=== PATIENT | female | born 1985 | race Caucasian/White ===

== ENCOUNTER 2018-02-04 03:38 | Emergency (ER) | payer BC ==
[2018-02-04] MEDS ORDERED: CYCLOBENZAPRINE 10 MG TAB ONE (04:15)
[2018-02-04] MEDS ORDERED: HYDROCODONE/APAP 10/325 TAB ONE (04:15)
[2018-02-04 05:00] LABS: Urine Glucose 2+ (NEG); Urine Specific Gravity 1.015 (1.005-1.030)
[2018-02-04 05:01] LABS: Urine Blood NEGATIVE (NEG); Urine Protein NEGATIVE (NEG)
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
[2018-02-04 06:08] VITALS: BP 153/100; TEMP 97.3; O2SAT 99
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
== END 2018-02-04 06:02 | disposition home or self-care (01) ==
LOC: ER 03:38
DX: M54.5 Low back pain (principal); V59.40XA Driver of pick-up truck or van injured in collision with unspecified motor vehicles in traffic accident, initial encounter; F17.210 Nicotine dependence, cigarettes, uncomplicated
CPT/HCPCS: 72125; 72131; 81003; 81025; 99284

== ENCOUNTER 2019-04-02 10:15 | Emergency (ER) | payer BC ==
[2019-04-02] MEDS ORDERED: FLUORESCEIN SODIUM 1 MG/WRAP ONE (11:30)
[2019-04-02] MEDS ORDERED: TETRACAINE HCL 0.5% 4ML OPTH ONE (11:30)
--- NOTE | 2019-04-02 11:46 | ER ---
Nurse's Notes [facility] Name: Laney Griffith Age: 33 yrs Sex: Female : 1985 Arrival Date: 04/02/2019 Time: 10:17 Bed 17 Private MD: Diagnosis: Ocular pain, left eye;Ocular pain, right eye;Type 2 diabetes mellitus Presentation: 04/02 10:21 Presenting complaint: Patient states: right back pain and "Dr Chaparro told me I have sv chronic dry eyes and the techniques he's used are not helping me. The diabetes is taking over. ". Transition of care: patient was not received from another setting of care. Onset of symptoms is unknown. Risk Assessment: Do you want to hurt yourself or someone else? Patient reports no desire to harm self or others. Care prior to arrival: None. 10:21 Method Of Arrival: Ambulatory sv 10:21 Acuity: BRUCE 3 sv Historical: - Allergies: 10:22 No Known Allergies; sv - PMHx: 10:22 ibs; Diabetes - NIDDM; sv - PSHx: 10:22 eye; sv - Immunization history:: Adult Immunizations up to date. - Social history:: Smoking status: Patient uses tobacco products, smokes two packs cigarettes per day. - Ebola Screening: : No symptoms or risks identified at this time. - Family history:: not pertinent. Screenin:35 Abuse screen: Denies threats or abuse. Nutritional screening: No deficits noted. la1 Tuberculosis screening: No symptoms or risk factors identified. Fall Risk None identified. Assessment: 11:34 General: Appears in no apparent distress. Behavior is calm, cooperative. Pain: la1 Complains of pain in right eye and left eye. Neuro: Level of Consciousness is awake, alert, obeys commands, Oriented to person, place, time, situation. Cardiovascular: No deficits noted. Respiratory: Airway is patent Respiratory effort is even, unlabored, Respiratory pattern is regular, symmetrical. GI: No signs and/or symptoms were reported involving the gastrointestinal system. : No signs and/or symptoms were reported regarding the genitourinary system. EENT: Sclera/Cornea are clear in outer aspect of conjuctiva of right eye, inner aspect of conjuctiva of right eye, outer aspect of conjuctiva of left eye and inner aspect of conjunctiva of left eye. Vital Signs: 10:23 BP 129 / 72; Pulse 98; Resp 20; Temp 98.1(O); Pulse Ox 97% ; Weight 90.72 kg; Height 5 sv ft. 3 in. (160.02 cm); 10:23 Body Mass Index 35.43 (90.72 kg, 160.02 cm) sv ED Course: 10:17 Patient arrived in ED. as 10:22 Triage completed. sv 10:23 Arm band placed on. sv 10:35 Esteban Hollis MD is Attending Physician. [facility] 10:48 Jb Newton, ELIZABETH is Primary Nurse. la1 11:35 Patient has correct armband on for positive identification. la1 11:45 Stiven Chaparro MD is Referral Physician. [facility] 11:57 Urine --Ancillary (enter results) Sent. la1 12:02 No provider procedures requiring assistance completed. Patient did not have IV access la1 during this emergency room visit. Administered Medications: 11:57 Drug: Tobramycin Ointment (0.3 %) 0.5 inches Route: Ophthalmic; Site: both eyes; me1 Point of Care Testing: Blood Glucose: 11:31 Blood Glucose: 175 mg/dL; 5 Ranges: Outcome: 11:45 Discharge ordered by . [facility] 12:02 Discharged to home ambulatory. [facility] 12:02 Condition: stable 12:02 Discharge instructions given to patient, Instructed on discharge instructions, follow up and referral plans. medication usage, Demonstrated understanding of instructions, follow-up care, medications, Prescriptions given X 2. 12:02 Patient left the ED. [facility] Signatures: Sunita Oconnor RN RN Esteban Hollis MD MD cha Martinez, Amelia as Jb Newton RN RN la Keisha Taylor 5 Corrections: (The following items were deleted from the chart) 10:24 10:23 BP 129 / 72; Pulse 98bpm; Resp 20bpm; Pulse Ox 97%; 90.72 kg; Height 5 ft. 3 in.; sv BMI: 35.4; sv 10:32 10:21 Presenting complaint: Patient states: right back pain and "Dr Chaparro told me I sv have chronic dry eyes and the techniques he's used are not helping me. " sv
--- NOTE | 2019-04-02 11:47 | EDPHYS ---
Physician Documentation [facility] Name: Laney Griffith Age: 33 yrs Sex: Female : 1985 Arrival Date: 04/02/2019 Time: 10:17 Bed 17 Private MD: MARK Physician Esteban Hollis HPI: 04/02 11:10 This 33 yrs old Female presents to ER via Ambulatory with complaints of Eye ivanna Problem, Back Pain, Depression. 11:10 The patient is experiencing burning. Onset: The symptoms/episode began/occurred 3 ivanna day(s) ago. Duration: the symptoms are continuous. Aggravated by nothing. Alleviated by nothing. Associated signs and symptoms: Pertinent positives:. Severity of symptoms: At their worst the symptoms were mild in the emergency department the symptoms are unchanged. The patient has not experienced similar symptoms in the past. Historical: - Allergies: 10:22 No Known Allergies; sv - PMHx: 10:22 ibs; Diabetes - NIDDM; sv - PSHx: 10:22 eye; sv - Immunization history:: Adult Immunizations up to date. - Social history:: Smoking status: Patient uses tobacco products, smokes two packs cigarettes per day. - Ebola Screening: : No symptoms or risks identified at this time. - Family history:: not pertinent. ROS: 11:10 Constitutional: Negative for fever, chills, and weight loss, ENT: Negative for injury, ivanna pain, and discharge, Neck: Negative for injury, pain, and swelling, Cardiovascular: Negative for chest pain, palpitations, and edema, Respiratory: Negative for shortness of breath, cough, wheezing, and pleuritic chest pain, Abdomen/GI: Negative for abdominal pain, nausea, vomiting, diarrhea, and constipation, Back: Negative for injury and pain, : Negative for injury, bleeding, discharge, and swelling, MS/Extremity: Negative for injury and deformity, Skin: Negative for injury, rash, and discoloration, Neuro: Negative for headache, weakness, numbness, tingling, and seizure, Psych: Negative for depression, anxiety, suicide ideation, homicidal ideation, and hallucinations, Allergy/Immunology: Negative for hives, rash, and allergies, Endocrine: Negative for neck swelling, polydipsia, polyuria, polyphagia, and marked weight changes, Hematologic/Lymphatic: Negative for swollen nodes, abnormal bleeding, and unusual bruising. 11:10 Eyes: Positive for pain, redness, of the outer aspect of conjuctiva of right eye, iris of right eye, inner aspect of conjuctiva of right eye, outer aspect of conjuctiva of left eye, iris of left eye and inner aspect of conjunctiva of left eye. Exam: 11:10 Constitutional: This is a well developed, well nourished patient who is awake, alert, ivanna and in no acute distress. Head/Face: Normocephalic, atraumatic. ENT: Nares patent. No nasal discharge, no septal abnormalities noted. Tympanic membranes are normal and external auditory canals are clear. Oropharynx with no redness, swelling, or masses, exudates, or evidence of obstruction, uvula midline. Mucous membranes moist. Neck: Trachea midline, no thyromegaly or masses palpated, and no cervical lymphadenopathy. Supple, full range of motion without nuchal rigidity, or vertebral point tenderness. No Meningismus. Chest/axilla: Normal chest wall appearance and motion. Nontender with no deformity. No lesions are appreciated. Cardiovascular: Regular rate and rhythm with a normal S1 and S2. No gallops, murmurs, or rubs. Normal PMI, no JVD. No pulse deficits. Respiratory: Lungs have equal breath sounds bilaterally, clear to auscultation and percussion. No rales, rhonchi or wheezes noted. No increased work of breathing, no retractions or nasal flaring. Abdomen/GI: Soft, non-tender, with normal bowel sounds. No distension or tympany. No guarding or rebound. No evidence of tenderness throughout. Back: No spinal tenderness. No costovertebral tenderness. Full range of motion. Skin: Warm, dry with normal turgor. Normal color with no rashes, no lesions, and no evidence of cellulitis. MS/ Extremity: Pulses equal, no cyanosis. Neurovascular intact. Full, normal range of motion. Neuro: Awake and alert, GCS 15, oriented to person, place, time, and situation. Cranial nerves II-XII grossly intact. Motor strength 5/5 in all extremities. Sensory grossly intact. Cerebellar exam normal. Normal gait. Psych: Awake, alert, with orientation to person, place and time. Behavior, mood, and affect are within normal limits. 11:10 Eyes: Periorbital structures: appear normal, no acute changes, Pupils: no acute changes, equal, round, and reactive to light and accomodation, Extraocular movements: intact throughout, Conjunctiva: normal, no acute changes, Corneas: are normal, Anterior chamber: normal, no acute changes, Lids and lashes: appear normal, no acute changes, funduscopic exam reveals no obvious abnormalities, no acute changes, Nystagmus: is not appreciated. Vital Signs: 10:23 BP 129 / 72; Pulse 98; Resp 20; Temp 98.1(O); Pulse Ox 97% ; Weight 90.72 kg; Height 5 sv ft. 3 in. (160.02 cm); 10:23 Body Mass Index 35.43 (90.72 kg, 160.02 cm) sv MDM: 10:35 Patient medically screened. [facility] 11:13 Data reviewed: vital signs, nurses notes. [facility] 04/02 11:56 Order name: Urine Dipstick--Ancillary (enter results) in 04/02 11:56 Order name: Urine --Ancillary (enter results) in 04/02 11:09 Order name: Eye Tray; Complete Time: 11:33 [facility] 04/02 11:09 Order name: Blood Glucose Level; Complete Time: 11:33 [facility] 04/02 11:36 Order name: Urine Dipstick-Ancillary (obtain specimen); Complete Time: 11:51 [facility] 04/02 11:36 Order name: Urine Test (obtain specimen); Complete Time: 11:51 la1 Administered Medications: 11:57 Drug: Tobramycin Ointment (0.3 %) 0.5 inches Route: Ophthalmic; Site: both eyes; al1 Point of Care Testing: Blood Glucose: 11:31 Blood Glucose: 175 mg/dL; 5 Ranges: Critical Glucose Levels:Adult <50 mg/dl or >400 mg/dl <40 mg/dl or >180 mg/dl Disposition: 04/02/19 11:45 Discharged to Home. Impression: Ocular pain, left eye, Ocular pain, right eye, Type 2 diabetes mellitus. - Condition is Stable. - Discharge Instructions: Type 2 Diabetes Mellitus, Diagnosis, Adult, Corneal Abrasion, Corneal Abrasion, [id number], Tobacco Use Disorder, Type 2 Diabetes Mellitus, Diagnosis, Adult, [id number], Type 2 Diabetes Mellitus, Self Care, Adult, Type 2 Diabetes Mellitus, Self Care, Adult, [id number]. - Prescriptions for Tobrex 0.3 % Ophthalmic ointment - apply 1 inch ribbon by OPHTHALMIC route 3 times per day; 3.5 gram. Tylenol- Codeine #3 300-30 mg Oral Tablet - take 2 tablet by ORAL route every 6 hours As needed; 30 tablet. - Medication Reconciliation Form, Thank You Letter, Antibiotic Education, Prescription Opioid Use form. - Follow up: Private Physician; When: 2 - 3 days; Reason: Recheck today's complaints, Continuance of care, Re-evaluation by your physician. Follow up: Stiven Chaparro MD; When: 1 - 2 days; Reason: Recheck today's complaints, Continuance of care, Re-evaluation by your physician. - Problem is new. - Symptoms have improved. Signatures: Dispatcher [employer] EDSunita Almodovar RN RN sv Anderson, Corey, MD MD cha Attema, Lee, RN RN la1 Corrections: (The following items were deleted from the chart) 11:45 11:45 04/02/2019 11:45 Discharged to Home. Impression: Ocular pain, left eye; Ocular ivanna pain, right eye. Condition is Stable. Forms are Medication Reconciliation Form, Thank You Letter, Antibiotic Education, Prescription Opioid Use. Follow up: Private Physician; When: 2 - 3 days; Reason: Recheck today's complaints, Continuance of care, Re-evaluation by your physician. Problem is new. Symptoms have improved. [facility] 11:47 11:45 04/02/2019 11:45 Discharged to Home. Impression: Ocular pain, left eye; Ocular ivanna pain, right eye. Condition is Stable. Forms are Medication Reconciliation Form, Thank You Letter, Antibiotic Education, Prescription Opioid Use. Follow up: Private Physician; When: 2 - 3 days; Reason: Recheck today's complaints, Continuance of care, Re-evaluation by your physician. Follow up: Stiven Chaparro; When: 1 - 2 days; Reason: Recheck today's complaints, Continuance of care, Re-evaluation by your physician. Problem is new. Symptoms have improved. [facility] 12:02 11:47 04/02/2019 11:45 Discharged to Home. Impression: Ocular pain, left eye; Ocular la1 pain, right eye; Type 2 diabetes mellitus. Condition is Stable. Discharge Instructions: Corneal Abrasion, Corneal Abrasion, [id number], Type 2 Diabetes Mellitus, Diagnosis, Adult, Type 2 Diabetes Mellitus, Diagnosis, Adult, [id number], Type 2 Diabetes Mellitus, Self Care, Adult, Type 2 Diabetes Mellitus, Self Care, Adult, [id number]. Prescriptions for Tobrex 0.3 % Ophthalmic ointment - apply 1 inch ribbon by OPHTHALMIC route 3 times per day; 3.5 gram, Tylenol-Codeine #3 300-30 mg Oral Tablet - take 2 tablet by ORAL route every 6 hours As needed; 30 tablet. and Forms are Medication Reconciliation Form, Thank You Letter, Antibiotic Education, Prescription Opioid Use. Follow up: Private Physician; When: 2 - 3 days; Reason: Recheck today's complaints, Continuance of care, Re-evaluation by your physician. Follow up: Stiven Chaparro; When: 1 - 2 days; Reason: Recheck today's complaints, Continuance of care, Re-evaluation by your physician. Problem is new. Symptoms have improved. ivanna
[2019-04-02] MEDS ORDERED: TOBRAMYCIN SULF 0.3% OPTH OINT ONE (11:54)
[2019-04-02 12:01] LABS: Urine Blood NEGATIVE (NEG); Urine Glucose 1+ (NEG); Urine Protein NEGATIVE (NEG); Urine Specific Gravity 1.015 (1.005-1.030); Urine pH 5.5 (5.0-7.0)
[2019-04-02 12:27] VITALS: BP 129/72; TEMP 98.1; O2SAT 97
== END 2019-04-02 12:02 | disposition home or self-care (01) ==
LOC: ER 10:15
DX: H57.13 Ocular pain, bilateral (principal); E11.9 Type 2 diabetes mellitus without complications; F17.210 Nicotine dependence, cigarettes, uncomplicated
CPT/HCPCS: 81003; 81025; 82962; 99283

== ENCOUNTER 2019-06-11 15:22 | Emergency (ER) | payer BC ==
[2019-06-11] MEDS ORDERED: NA CHLORIDE 0.9% 1,000 ML ONE (15:45)
--- NOTE | 2019-06-11 15:54 | EKG ---
Test Date: 2019-06-11 Test Time: 15:41:45 Cake Puller: ARA MEASUREMENT RESULTS: Intervals: Rate: 69 MI: 146 QRSD: 78 QT: 398 QTc: 426 Huntley: P: 52 MI: 146 QRS: 51 T: 51 INTERPRETIVE STATEMENTS: Normal sinus rhythm with sinus arrhythmia Normal ECG Compared to ECG 12/08/2014 17:30:42 No significant changes Electronically Signed On 06-11-19 15:53:12 [employer]ILY [employer]ENCE CASE MANAGER by Ross Ayers
[2019-06-11 16:12] LABS: Absolute Lymphocytes (CBC) 2.4 K/uL (0.7-4.9)
--- NOTE | 2019-06-11 16:20 | RAD REPORT ---
EXAM DESCRIPTION: CT - Head Brain Wo Cont - 06/11/2019 3:51 pm CLINICAL HISTORY: Transient alteration of awareness COMPARISON: None. TECHNIQUE: Axial 5 mm thick images of the head were obtained without IV contrast. All CT scans are performed using dose optimization technique as appropriate and may include automated exposure control or mA/KV adjustment according to patient size. FINDINGS: No intracranial hemorrhage, mass, edema or shift of mid-line structures. No acute infarcti on changes seen. No abnormal extra-axial fluid collections. Ventricles are normal. Mastoid air cells and visualized portions of the paranasal sinuses are clear. No acute bony findings. IMPRESSION: Negative non-contrast CT head examination.
[2019-06-11 16:27] LABS: Basophils % 1.5 % (0-1.3); Hematocrit 41.6 % (36.0-45.0); Lymphocytes % 29.6 % (15.3-44.8); MPV 7.1 fL (7.6-11.3); Protime INR 1.04; RBC Red Blood Cell Count 4.83 M/uL (3.86-4.86)
[2019-06-11 16:53] LABS: ALT/SGPT 49 U/L (12-78); AST/SGOT 22 U/L (15-37); Albumin 3.7 g/dL (3.4-5.0); Alkaline Phosphatase 85 U/L (45-117); BUN Blood Urea Nitrogen 8 mg/dL (7-18); Bicarbonate 29 mmol/L (21-32); Bilirubin Direct 0.1 mg/dL (0-0.2); Bilirubin Total 0.5 mg/dL (0.2-1.0); Glucose Level 142 mg/dL (74-106); Potassium 3.7 mmol/L (3.5-5.1); Protein, Total 7.3 g/dL (6.4-8.2); Sodium Level 139 mmol/L (136-145)
[2019-06-11 17:04] LABS: Urine Bacteria 20-50 /HPF (<20); Urine Culture Reflex Order REFLEXED; Urine Mucus 1+ /HPF (NONE SEEN)
[2019-06-11 17:05] LABS: Urine Blood 1+ (NEG); Urine Glucose NEGATIVE (NEG); Urine Protein NEGATIVE (NEG)
[2019-06-11 17:16] LABS: Barbiturates NEGATIVE (NEGATIVE); Benzodiazepines NEGATIVE (NEGATIVE); Cocaine NEGATIVE (NEGATIVE); METHAMPHETAM NEGATIVE (NEGATIVE); Methadone NEGATIVE (NEGATIVE); Opiates NEGATIVE (NEGATIVE); Phencyclidine NEGATIVE (NEGATIVE); THC Cannibis POSITIVE (NEGATIVE)
[2019-06-11] MEDS ORDERED: CEFTRIAXONE/SWI 1gm 1 GM/10 ML SYR ONE (17:52)
--- NOTE | 2019-06-11 17:54 | EDPHYS ---
Physician Documentation [facility] Name: Laney Griffith Age: 33 yrs Sex: Female : 1985 Arrival Date: 06/11/2019 Time: 15:33 Bed 30 Private MD: ED Physician Gabino Hein HPI: 06/11 15:49 This 33 yrs old Female presents to ER via EMS with complaints of memory loss. pm1 15:49 The patient presents with memory loss. Onset: The symptoms/episode began/occurred 4 pm1 day(s) ago. 15:49 Possible causes: Change to new medication - Amoxapine 4 days ago by PCPRigo. pm1 Associated signs and symptoms: Pertinent positives: burning with urination. Patient's baseline: Neuro: alert and fully oriented, Motor: no deficits, Ambulation: walks without assistance, Speech: normal. The patient has not experienced similar symptoms in the past. The patient has been recently seen by a physician: with different complaint(s), anxiety/depression management. Medication changed to Amoxapine. reports that the patient has been asking the same questions repetitively for the past 4 days. She keeps asking him if he is her . Historical: - Allergies: 15:42 No Known Allergies; mg2 - Home Meds: 15:42 Lisinopril Oral [Active]; glitzapine [Active]; Amoxapine Oral [Active]; mg2 - PMHx: 15:42 Diabetes - NIDDM; ibs; Hypertension; Anxiety; Depression; mg2 - PSHx: 15:42 ; mg2 - Immunization history:: Flu vaccine is not up to date. - Social history:: Smoking status: Patient/guardian denies using tobacco, Patient/guardian denies using alcohol, street drugs, IV drugs. - Ebola Screening: : No symptoms or risks identified at this time. ROS: 15:49 Constitutional: Negative for fever, chills, and weight loss, Eyes: Negative for injury, pm1 pain, redness, and discharge, ENT: Negative for injury, pain, and discharge, Neck: Negative for injury, pain, and swelling, Cardiovascular: Negative for chest pain, palpitations, and edema, Respiratory: Negative for shortness of breath, cough, wheezing, and pleuritic chest pain, Abdomen/GI: Negative for abdominal pain, nausea, vomiting, diarrhea, and constipation, Back: Negative for injury and pain, MS/Extremity: Negative for injury and deformity, Skin: Negative for injury, rash, and discoloration. 15:49 : Positive for burning with urination. 15:49 Neuro: Positive for headache, memory loss, Negative for numbness, tingling, weakness. Exam: 15:49 Constitutional: This is a well developed, well nourished patient who is awake, alert, pm1 and in no acute distress. Head/Face: Normocephalic, atraumatic. Eyes: Pupils equal round and reactive to light, extra-ocular motions intact. Lids and lashes normal. Conjunctiva and sclera are non-icteric and not injected. Cornea within normal limits. Periorbital areas with no swelling, redness, or edema. ENT: Nares patent. No nasal discharge, no septal abnormalities noted. Tympanic membranes are normal and external auditory canals are clear. Oropharynx with no redness, swelling, or masses, exudates, or evidence of obstruction, uvula midline. Mucous membranes moist. Neck: Trachea midline, no thyromegaly or masses palpated, and no cervical lymphadenopathy. Supple, full range of motion without nuchal rigidity, or vertebral point tenderness. No Meningismus. Chest/axilla: Normal chest wall appearance and motion. Nontender with no deformity. No lesions are appreciated. Cardiovascular: Regular rate and rhythm with a normal S1 and S2. No gallops, murmurs, or rubs. Normal PMI, no JVD. No pulse deficits. Respiratory: Lungs have equal breath sounds bilaterally, clear to auscultation and percussion. No rales, rhonchi or wheezes noted. No increased work of breathing, no retractions or nasal flaring. Abdomen/GI: Soft, non-tender, with normal bowel sounds. No distension or tympany. No guarding or rebound. No evidence of tenderness throughout. Back: No spinal tenderness. No costovertebral tenderness. Full range of motion. Skin: Warm, dry with normal turgor. Normal color with no rashes, no lesions, and no evidence of cellulitis. MS/ Extremity: Pulses equal, no cyanosis. Neurovascular intact. Full, normal range of motion. 15:49 Neuro: Orientation: is normal, to person, place, time \T\ situation. Mentation: is normal, Cranial nerves: CN II- XII are normal as tested, Cerebellar function: normal finger to nose testing, Motor: moves all fours. Vital Signs: 15:40 BP 157 / 105; Pulse 73; Resp 18; Temp 98.7(O); Pulse Ox 100% on R/A; Weight 86.18 kg; mg2 Height 5 ft. 3 in. (160.02 cm); Pain 0/10; 16:30 BP 145 / 96; Pulse 76; Resp 16; Pulse Ox 100% on R/A; rv 17:30 BP 150 / 94; Pulse 78; Resp 16; Pulse Ox 100% on R/A; rv 18:03 BP 139 / 88; Pulse 76; Resp 16; Pulse Ox 100% on R/A; rv 15:40 Body Mass Index 33.66 (86.18 kg, 160.02 cm) mg2 MDM: 15:33 Patient medically screened. pm1 17:50 Data reviewed: vital signs. Data interpreted: Pulse oximetry: on room air is 100 %. pm1 Interpretation: normal. Counseling: I had a detailed discussion with the patient and/or guardian regarding: the historical points, exam findings, and any diagnostic results supporting the discharge/admit diagnosis, lab results, radiology results, the need for outpatient follow up, to return to the emergency department if symptoms worsen or persist or if there are any questions or concerns that arise at home. 06/11 15:34 Order name: Acetaminophen pm1 06/11 15:34 Order name: Basic Metabolic Panel pm1 06/11 15:34 Order name: CBC with Diff pm1 06/11 15:34 Order name: ETOH Level pm1 06/11 15:34 Order name: Hepatic Function; Complete Time: 17:03 pm1 06/11 15:34 Order name: PT-INR; Complete Time: 16:44 pm1 06/11 15:34 Order name: Ptt, Activated; Complete Time: 16:44 pm1 06/11 15:34 Order name: Salicylate; Complete Time: 16:44 pm1 06/11 15:34 Order name: Urine Drug Screen; Complete Time: 17:24 pm1 06/11 15:35 Order name: Acetaminophen Level; Complete Time: 17:03 EDMS 06/11 15:35 Order name: Basic Metabolic Panel; Complete Time: 17:03 EDMS 06/11 15:35 Order name: CBC with Automated Diff; Complete Time: 16:44 [facility] 06/11 15:35 Order name: Urine Microscopic Only; Complete Time: 17:08 pm1 06/11 15:35 Order name: Alcohol Serum/Plasma; Complete Time: 16:44 [facility] 06/11 15:34 Order name: CT Head Brain wo Cont; Complete Time: 16:25 pm1 06/11 15:34 Order name: Urine Test (obtain specimen); Complete Time: 16:43 pm1 06/11 15:34 Order name: EKG; Complete Time: 15:35 pm1 06/11 15:34 Order name: EKG - Nurse/Tech; Complete Time: 15:55 pm1 06/11 15:34 Order name: IV Saline Lock; Complete Time: 15:56 pm1 06/11 15:34 Order name: Labs collected and sent; Complete Time: 15:56 pm1 06/11 15:34 Order name: Urine Dipstick-Ancillary (obtain specimen); Complete Time: 16:43 pm1 06/11 16:42 Order name: Urine Dipstick--Ancillary (enter results); Complete Time: 17:08 bd 06/11 16:42 Order name: Urine --Ancillary (enter results); Complete Time: 17:08 bd 06/11 17:15 Order name: Urine Culture [facility] 06/11 18:07 Order name: Diet Regular; Complete Time: 18:08 bd EC:47 Rate is 69 beats/min. Rhythm is regular, Normal Sinus Rhythm. QRS [place] is Normal. QT pm1 interval is normal. No Q waves. T waves are Normal. No ST changes noted. Clinical impression: Normal sinus rhythm with sinus arrhythmia. Administered Medications: 16:22 Drug: NS 0.9% 1000 ml Route: IV; Rate: 1000 ml; Site: right antecubital; mg2 18:14 Follow up: IV Status: Completed infusion rv 17:57 Drug: Rocephin 1 grams Route: IV; Rate: calculated rate; Site: right antecubital; rv 18:13 Follow up: IV Status: Completed infusion rv Disposition: 18:50 Co-signature as Attending Physician, Gabino Hein MD. rn Disposition: 06/11/19 17:53 Discharged to Home. Impression: Urinary tract infection, site not specified, Cannabis abuse, Unspecified adverse effect of drug or medicament. - Condition is Stable. - Discharge Instructions: Cannabis Use Disorder, Urinary Tract Infection, Adult. - Prescriptions for Macrobid 100 mg Oral Capsule - take 1 capsule by ORAL route every 12 hours for 10 days; 20 capsule. - Medication Reconciliation Form, Thank You Letter, Antibiotic Education, Prescription Opioid Use form. - Follow up: Emergency Department; When: As needed; Reason: Worsening of condition. Follow up: Private Physician; When: 2 - 3 days; Reason: Recheck today's complaints, Continuance of care, Re-evaluation by your physician. - Problem is new. - Symptoms have improved. Signatures: Dispatcher [employer] EDMS Gabino Hein MD MD rn Isak Siddiqi NP SALES MANAGEMENT TRAINEE pm1 Beka Owusu RN RN mg2 Berto Strauss RN RN rv Corrections: (The following items were deleted from the chart) 17:55 17:53 06/11/2019 17:53 Discharged to Home. Impression: Urinary tract infection, site pm1 not specified; Cannabis abuse. Condition is Stable. Forms are Medication Reconciliation Form, Thank You Letter, Antibiotic Education, Prescription Opioid Use. Follow up: Emergency Department; When: As needed; Reason: Worsening of condition. Follow up: Private Physician; When: 2 - 3 days; Reason: Recheck today's complaints, Continuance of care, Re-evaluation by your physician. Problem is new. Symptoms have improved. pm1 18:14 17:55 06/11/2019 17:53 Discharged to Home. Impression: Urinary tract infection, site rv not specified; Cannabis abuse; Unspecified adverse effect of drug or medicament. Condition is Stable. Discharge Instructions: Cannabis Use Disorder, Urinary Tract Infection, Adult. Forms are Medication Reconciliation Form, Thank You Letter, Antibiotic Education, Prescription Opioid Use. Follow up: Emergency Department; When: As needed; Reason: Worsening of condition. Follow up: Private Physician; When: 2 - 3 days; Reason: Recheck today's complaints, Continuance of care, Re-evaluation by your physician. Problem is new. Symptoms have improved. pm1
--- NOTE | 2019-06-11 17:54 | ER ---
Nurse's Notes [facility] Name: Laney Griffith Age: 33 yrs Sex: Female : 1985 Arrival Date: 06/11/2019 Time: 15:33 Bed 30 Private MD: Diagnosis: Urinary tract infection, site not specified;Cannabis abuse;Unspecified adverse effect of drug or medicament Presentation: 06/11 15:33 Presenting complaint: EMS states: called us saying that she has been having mg2 temporary memory loss and feels that she is drunk. she also complained of dizziness, weakness, n/v. she just started taking the amoxapine 3 days ago. BGL-144 mg/dl. Transition of care: patient was not received from another setting of care. Onset of symptoms was June 2019. Risk Assessment: Do you want to hurt yourself or someone else? Patient reports no desire to harm self or others. Initial Sepsis Screen: Does the patient meet any 2 criteria? No. Patient's initial sepsis screen is negative. Does the patient have a suspected source of infection? No. Patient's initial sepsis screen is negative. Care prior to arrival: None. 15:33 Method Of Arrival: EMS: [facility] mg2 15:33 Acuity: BRUCE 3 mg2 Historical: - Allergies: 15:42 No Known Allergies; mg2 - Home Meds: 15:42 Lisinopril Oral [Active]; glitzapine [Active]; Amoxapine Oral [Active]; mg2 - PMHx: 15:42 Diabetes - NIDDM; ibs; Hypertension; Anxiety; Depression; mg2 - PSHx: 15:42 ; mg2 - Immunization history:: Flu vaccine is not up to date. - Social history:: Smoking status: Patient/guardian denies using tobacco, Patient/guardian denies using alcohol, street drugs, IV drugs. - Ebola Screening: : No symptoms or risks identified at this time. Screenin:52 Abuse screen: Denies threats or abuse. Denies injuries from another. Nutritional mg2 screening: No deficits noted. Tuberculosis screening: No symptoms or risk factors identified. Fall Risk IV access (20 points). Mental Status- Oriented to own ability (0 pts). Assessment: 15:53 Reassessment: patient doesn't remember how she got to the hospital today. she remembers mg2 she has a and the name of her [address] scan via stretcher. Pain: Denies pain. 16:23 General: Appears in no apparent distress. comfortable, Behavior is calm, cooperative. mg2 Neuro: Level of Consciousness is awake, alert, obeys commands, Oriented to person, place, time, situation. Cardiovascular: Capillary refill < 3 seconds Patient's skin is warm and dry. Respiratory: Airway is patent Respiratory effort is even, unlabored, Respiratory pattern is regular, symmetrical. GI: Reports nausea, vomiting. : No signs and/or symptoms were reported regarding the genitourinary system. EENT: No signs and/or symptoms were reported regarding the EENT system. Derm: Skin is intact, is healthy with good turgor, Skin is pink, warm \T\ dry. normal. Musculoskeletal: Circulation, motion, and sensation intact. Capillary refill < 3 seconds. Vital Signs: 15:40 BP 157 / 105; Pulse 73; Resp 18; Temp 98.7(O); Pulse Ox 100% on R/A; Weight 86.18 kg; mg2 Height 5 ft. 3 in. (160.02 cm); Pain 0/10; 16:30 BP 145 / 96; Pulse 76; Resp 16; Pulse Ox 100% on R/A; rv 17:30 BP 150 / 94; Pulse 78; Resp 16; Pulse Ox 100% on R/A; rv 18:03 BP 139 / 88; Pulse 76; Resp 16; Pulse Ox 100% on R/A; rv 15:40 Body Mass Index 33.66 (86.18 kg, 160.02 cm) mg2 ED Course: 15:33 Patient arrived in ED. mg2 15:33 Isak Siddiqi NP is PHCP. pm1 15:33 Gabino Hein MD is Attending Physician. pm1 15:39 Triage completed. mg2 15:42 Arm band placed on. mg2 15:51 CT completed. Patient tolerated procedure well. Patient moved to CT. Patient moved back nj from CT. 15:51 No provider procedures requiring assistance completed. Inserted saline lock: 20 gauge mg2 in right antecubital area, using aseptic technique. Blood collected. by Avery casting supervisor. 15:52 EKG done, by special systems technician. reviewed by Isak Siddiqi NP. sm3 15:53 CT Head Brain wo Cont In Process Unspecified. EDMS 15:54 Patient has correct armband on for positive identification. groundwater monitoring technician on. Pulse mg2 ox on. NIBP on. Door closed. 15:55 Beka Owusu, RN is Primary Nurse. mg2 17:16 Berto Strauss, RN is Primary Nurse. rv 18:04 IV discontinued, intact, bleeding controlled, No redness/swelling at site. Pressure rv dressing applied. Administered Medications: 16:22 Drug: NS 0.9% 1000 ml Route: IV; Rate: 1000 ml; Site: right antecubital; mg2 18:14 Follow up: IV Status: Completed infusion rv 17:57 Drug: Rocephin 1 grams Route: IV; Rate: calculated rate; Site: right antecubital; rv 18:13 Follow up: IV Status: Completed infusion rv Outcome: 17:53 Discharge ordered by MD. pm1 18:01 Discharged to home ambulatory, with family. rv 18:01 Condition: good 18:01 Discharge instructions given to patient, family, Instructed on discharge instructions, follow up and referral plans. medication usage, Demonstrated understanding of instructions, follow-up care, medications, Prescriptions given X 1. 18:14 Patient left the ED. rv Addendum: 06/14/2019 11:50 Addendum: Culture Results: Positive urine culture. No further action required. Bacteria s s sensitive to prescribed antibiotic. Signatures: Dispatcher [employer] EDAZ Radha Sterling RN RN ss Isak Siddiqi, DRU MATERIALS ANALYST pm1 Vincent Jeter Michele, RN RN [facility] Rosemary Delgado 3 Berto Strauss RN RN rv Corrections: (The following items were deleted from the chart) 06/11 15:43 15:33 Presenting complaint: EMS states: called us saying that she has been mg2 having temporary memory loss and feels that she is drunk. she also complained of dizziness, weakness, n/v. she just started taking the amoxapine 3 days ago. mg2 15:52 15:51 Inserted saline lock: by Avery casting supervisor mg2 mg2
[2019-06-11 18:26] VITALS: TEMP 98.7; O2SAT 100
[2019-06-11 18:29] VITALS: BP 139/88
== END 2019-06-11 18:14 | disposition home or self-care (01) ==
LOC: ER 15:22
DX: N39.0 Urinary tract infection, site not specified (principal); T43.015A Adverse effect of tricyclic antidepressants, initial encounter; Y92.9 Unspecified place or not applicable; F12.90 Cannabis use, unspecified, uncomplicated; I10 Essential (primary) hypertension; F41.8 Other specified anxiety disorders
CPT/HCPCS: 96365; 96361; 93005; 87088; 85025; 87086; 80048; 36415; 80320; 80329 ×2; 81025; 85610; 80076; 80307 ×8; 85730; 87077; 87186; 70450; 99285; J0696; J7030; 81003; 81015

== ENCOUNTER 2019-06-12 15:33 | Emergency (ER) | payer BC ==
--- NOTE | 2019-06-12 15:58 | ER ---
Nurse's Notes [facility] Name: Laney Griffith Age: 33 yrs Sex: Female : 1985 Arrival Date: 06/12/2019 Time: 15:36 Bed Waiting Private MD: Nasir Forrest E Diagnosis: Presentation: 06/12 15:40 Presenting complaint: Significant other states: we came yesterday for memory loss and tw2 she has been diagnosed with mood disorder, the most prominent thing is memory loss, she had a follow up with PCP today and she didn't recognize him and she has seen him for 7 years, physically she is ok but her moods change so often, dr. moralez is concerned for her mental condition. Transition of care: patient was not received from another setting of care. Onset of symptoms was June 12, 2019. Risk Assessment: Do you want to hurt yourself or someone else? Patient reports no desire to harm self or others. Initial Sepsis Screen: Does the patient meet any 2 criteria? No. Patient's initial sepsis screen is negative. Does the patient have a suspected source of infection? No. Patient's initial sepsis screen is negative. Care prior to arrival: None. 15:40 Method Of Arrival: Wheelchair tw2 15:40 Acuity: BRUCE 3 tw2 Triage Assessment: 15:44 General: Appears obese, Behavior is crying. Pain: Denies pain. 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 - Social history:: Smoking status: Patient uses tobacco products, smokes two packs cigarettes per day. Patient uses street drugs, marijuana, spouse states "not sure". - Ebola Screening: : Patient denies travel to an Ebola-affected area in the 21 days before illness onset. Assessment: 15:49 Reassessment: pt walked out of restroom with spouse, told him "i want to leave" would tw2 not answer me when i asked her to stay and get evaluated. Vital Signs: 15:42 BP 166 / 109; Pulse 79; Resp 18; Temp 98.3(O); Pulse Ox 100% on R/A; Pain 0/10; tw2 ED Course: 15:36 Patient arrived in ED. mr 15:36 Nasir Forrest MD is Private Physician. mr 15:42 Triage completed. tw2 15:42 Arm band placed on. tw2 15:44 Anurag Sandoval MD is Attending Physician. kdr Administered Medications: No medications were administered Outcome: 15:57 Patient left the ED. tw2 Signatures: Anurag Sandoval MD MD [facility] Augustina Underwood mr Barbara Singh, RN RN tw2
== END 2019-06-12 15:57 | disposition left against medical advice (07) ==
LOC: ER 15:33
DX: Z53.21 Procedure and treatment not carried out due to patient leaving prior to being seen by health care provider (principal)
CPT/HCPCS: 99281

== ENCOUNTER 2019-12-22 15:46 | Emergency (ER) | payer BC ==
--- OUTSIDE RECORDS SUMMARY | 2019-12-22 15:49 | XMS REPORT | Clinical Summary ---
:1985 Author Organization [facility] Address [address] [place] [address] Care Team Providers Name Role Phone Conor Sierra PA-C Primary Care Provider Allergies No Known Allergies Medications Medication Sig Dispensed Refills Start Date End Date Status ALPRAZolam (XANAX) 2 Take 2 mg 2 06/29/2019 Active MG tablet by mouth 3 (three) times a day as needed. dextroamphetamine Take 15 mg 0 05/15/2019 Active (DEXEDRINE SPANSULE) by mouth 15 MG 24 hr capsule daily. glipiZIDE (GLUCOTROL) Take 10 mg 1 05/11/2019 Active 10 MG tablet by mouth daily. losartan-hydrochloroth Take 1 0 Active iazide (HYZAAR) 100-25 tablet by mg per tablet mouth daily. buPROPion SR Take 150 mg 0 Activ e (WELLBUTRIN SR) 150 MG by mouth 2 12 hr tablet (two) times a day. ziprasidone (GEODON) Take 20 mg 0 06/14/2019 0 Discontinued 20 MG capsule by mouth 2 19 (Med List (two) times Cleanup) a day. nortriptyline Take 75 mg 5 05/29/2019 07/04/20 Disc ontinued (PAMELOR) 75 MG by mouth 19 (Med List capsule nightly. Cleanup) Active Problems Not on file Encounters Date Type Specialty Care Team Description 08/06/2019 Office Visit Neurology Willy Smiley, Marlon astorga cognitive impairment (Jessica juan Dx) 07/24/2019 Hospital Encounter Radiology Willy Smiley MD 07/17/2019 Hospital Encounter Radiology Willy Smiley C ognitive impairment 07/04/2019 Office Visit Neurology Willy Smiley Cogniti ve impairment (Primary Dx) 07/04/2019 Abstract ADMIN Rebecca Tillman RN after 12/21/2018 Family History Medical History Relation Name Comments ADD / ADHD Daughter Diabetes Mother Hypertension Mother Schizophrenia Mother Depression Sister ADD / ADHD Sister ADD / ADHD Sister Relation Name Status Comments Daughter Mother Sister Sister Sister Social History Tobacco Use Types Packs/Day Years Used Date Current Every Day Smoker Cigarettes 2 Smokeless Tobacco: Never Used Alcohol Use Drinks/Week oz/Week Comments Never Alcohol Habits Answer Date Recorded How often do you have a drink containing alcohol? Never 07/04/2019 How many drinks containing alcohol do you have on a typical Not asked day when you are drinking? How often do you have six or more drinks on one occasion? No t asked Sex Assigned at Date Recorded Not on file Job Start Date Occupation Industry Not on file Not on file Not on file Travel History Travel Start Travel End No recent travel history available. Last Filed Vital Signs Vital Sign Reading Time Taken Comments Blood Pressure 142/95 08/06/2019 4:00 PM [facility] Pulse 86 08/06/2019 4:00 PM [facility] Temperature - - Respiratory Rate - - Oxygen Saturation - - Inhaled Oxygen Concentration - - Weight 86.8 kg (191 lb 4.8 oz) 08/06/2019 4:00 PM [facility] Height 160 cm (5' 3") 08/06/2019 4:00 PM [facility] Body Mass Index 33.89 08/06/2019 4:00 PM [facility] Plan of Treatment Health Maintenance Due Date Last Done Comments CERVICAL CANCER SCREENING 10/13/2008 INFLUENZA VACCINE 03/01/2020 Procedures Procedure Name Priority Date/Time Associated Diagnosis Comme nts MRI BRAIN WO Routine 07/24/2019 5:38 PM Cognitive impairment Results for this CONTRAST [facility] procedure are i n the results section. after 12/21/2018 Results MRI Brain Wo Contrast (07/24/2019 5:38 PM [facility]) Specimen Narrative Performed At This result has an attachment that is no t available. EXAMINATION: MRI BRAIN WO CONTRAST HM RADIANT COMPARISON: None CLINICAL HISTORY: R41.89 Other symptom s and signs involving cognitive functions and awareness, Rule our degenerative brain disorder or traumatic encephalopathy COMMENTS: Multiplanar MR imaging of th e brain was obtained without contrast. No T2-weighted images are available. FINDINGS: The brain shows no acute isc hemic change, hemorrhage or mass effect. The expected flow voids are present in the internal carotid and basilar arteries. No focal lesion is otherwise seen. The v entricles and sulci appear grossly within normal limits for the patient's age. IMPRESSION: No acute change in the brain. [facility]-[id number] Procedure Note Hm Interface, Radiology Results Incoming - 07/24/2019 6:17 PM [facility] EXAMINATION: MRI BRAIN WO CONTRAST COMPARISON: None CLINICAL HISTORY: R41.89 Other symptoms and signs involving cognitive functions and awareness, Rule our degenerative brain disorder or traumatic encephalopathy COMMENTS: Multiplanar MR imaging of the brain was obtained without contrast. No T2-weighted images are available. FINDINGS: The brain shows no acute isch emic change, hemorrhage or mass effect. The expected flow voids are present in the internal carotid and basilar arteries. No focal lesion is otherwise seen. The v entricles and sulci appear grossly within normal limits for the patient's age. IMPRESSION: No acute change in the brai n. 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
[2019-12-22] MEDS ORDERED: ONDANSETRON 4 MG (ODT) TAB ONE (17:54)
[2019-12-22] MEDS ORDERED: MECLIZINE HCL 12.5 MG TAB ONE (17:54)
--- NOTE | 2019-12-22 18:29 | RAD REPORT ---
EXAM DESCRIPTION: CT - Head Brain Wo Cont - 12/22/2019 6:23 pm CLINICAL HISTORY: DIZZINESS Headache, drowsiness COMPARISON: Head Brain Wo Cont dated 06/11/2019 TECHNIQUE: All CT scans are performed using dose optimization technique as appropriate and may inclu de automated exposure control or mA/KV adjustment according to patient size. FINDINGS: No intracranial hemorrhage, hydrocephalus or extra-axial fluid collection.No areas of brai n edema or evidence of midline shift. The paranasal sinuses and mastoids are clear. The calvarium is intact. IMPRESSION: No acute intracranial abnormality.
--- NOTE | 2019-12-22 19:35 | EDPHYS ---
Physician Documentation [facility] Name: Laney Griffith Age: 34 yrs Sex: Female : 1985 Arrival Date: 12/22/2019 Time: 15:54 Bed 7 Private MD: ED Physician Alan Santiago HPI: 12/21 17:20 This 34 yrs old Female presents to ER via Ambulatory with complaints of jmm Dizziness, Drainage From Eye, Nausea/Vomiting. 17:20 The patient presents with dizziness. Onset: The symptoms/episode began/occurred jmm acutely, 1 week(s) ago. Modifying factors: The symptoms are alleviated by lying down, the symptoms are aggravated by standing up. Associated signs and symptoms: Pertinent positives: nausea, vomiting. This is a 34 year old female with a history of DM that presents to the ED with complaints of dizziness, nausea and vomiting beginning approx 1 week ago. Patient had developed green drainage from eyes and nose along with frontal sinus pressure. Denies cough or shortness of breath. . MANAGER MANAGEMENT: 19:42 no period since 6 months ago rr5 Historical: - Allergies: 16:04 ACETAMINOPHEN; ll1 16:04 Codeine; ll1 16:04 hydrocodone bitartrate; ll1 - PMHx: 16:04 Anxiety; Diabetes - NIDDM; Hypertension; ibs; Depression; ll1 - PSHx: 16:04 ; ll1 - Immunization history:: Adult Immunizations up to date, Flu vaccine is not up to date. - Social history:: Smoking status: Patient reports the use of cigarette tobacco products, smokes two packs cigarettes per day. Patient/guardian denies using alcohol, street drugs. ROS: 17:20 Constitutional: Negative for fever, chills, and weight loss, Cardiovascular: Negative jmm for chest pain, palpitations, and edema, Respiratory: Negative for shortness of breath, cough, wheezing, and pleuritic chest pain. 17:20 ENT: Positive for sinus congestion. 17:20 Neuro: Positive for dizziness. 17:20 All other systems are negative. Exam: 17:20 Constitutional: This is a well developed, well nourished patient who is awake, alert, jmm and in no acute distress. Head/Face: atraumatic. Eyes: EOMI, no conjunctival erythema appreciated ENT: Moist Mucus Membranes Neck: Trachea midline, Supple Chest/axilla: Normal chest wall appearance and motion. Cardiovascular: Regular rate and rhythm. No edema appreciated 17:20 Abdomen/GI: Non distended, soft Back: Normal ROM Skin: General appearance color normal MS/ Extremity: Moves all extremities, no obvious deformities appreciated, no edema noted to the lower extremities Neuro: Awake and alert, normal gait Psych: Behavior is normal, Mood is normal, Patient is cooperative and pleasant 17:20 Head/face: Sinus tenderness, that is moderate, is located over the right ethmoid sinus, left ethmoid sinus, right maxillary sinus and left maxillary sinus. Vital Signs: 16:00 BP 127 / 81; Pulse 99; Resp 18; Temp 98.3; Pulse Ox 98% ; Weight 88.45 kg; Height 5 ft. ll1 3 in. (160.02 cm); Pain 1/10; 16:30 BP 123 / 83; ll1 19:05 BP 118 / 70; Pulse 95; Resp 17; Pulse Ox 99% ; rr5 19:43 Temp 97.5; rr5 16:00 Body Mass Index 34.54 (88.45 kg, 160.02 cm) ll1 MDM: 17:17 Patient medically screened. [facility] 19:33 Data reviewed: vital signs, nurses notes. Counseling: I had a detailed discussion with audi the patient and/or guardian regarding: the historical points, exam findings, and any diagnostic results supporting the discharge/admit diagnosis, radiology results, the need for outpatient follow up, to return to the emergency department if symptoms worsen or persist or if there are any questions or concerns that arise at home. Refusal of service: The patient/guardian displays adequate decision making capability and despite a detailed discussion of alternatives, benefits, risks, and consequences refuses: ekg. ED course: Dizziness is resolved. Cerebellar exam normal. I do not currently suspect central cause of vertigo. Most likely labyrinthitis. Patient is advised to follow up with PCP/ENT and is otherwise given strict return precautions. Patient understood and agrees with the plan of care. . 12/21 16:58 Order name: Glucose, Ancillary Testing; Complete Time: 17:17 [facility] 12/21 17:17 Order name: CT Head Brain wo Cont; Complete Time: 18:39 [facility] 12/21 17:42 Order name: EKG; Complete Time: 17:42 sv Administered Medications: 17:55 Drug: Ondansetron (Zofran) 4 mg Route: PO; sv 19:44 Follow up: Response: No adverse reaction rr5 18:00 Drug: Meclizine 50 mg Route: PO; sv 19:44 Follow up: Response: No adverse reaction rr5 Point of Care Testing: Blood Glucose: 16:30 Blood Glucose: 101 mg/dL; ll1 Ranges: Critical Glucose Levels:Adult <50 mg/dl or >400 mg/dl <40 mg/dl or >180 mg/dl Disposition: 12/22 07:07 Co-signature as Attending Physician, Alan Santiago MD. 7 Disposition: 12/22/19 19:34 Discharged to Home. Impression: Dizziness and giddiness. - Condition is Stable. - Discharge Instructions: Dizziness. - Prescriptions for Zofran ODT 4 mg Oral tablet,disintegrating - place 1 tablet by TRANSLINGUAL route every 4-6 hours; 20 tablet. Meclizine 25 mg Oral Tablet - take 1 tablet by ORAL route every 8 hours As needed; 30 tablet. - Medication Reconciliation Form, Thank You Letter, Antibiotic Education, Prescription Opioid Use form. - Follow up: Private Physician; When: 2 - 3 days; Reason: If symptoms return, Recheck today's complaints, Re-evaluation by your physician. Signatures: Dispatcher [employer] Sunita Ricci RN RN Mg Belle PA PA [facility] Michael Nash RN RN rr5 Freeman Lam RN RN ll1 Alan Santiago MD MD 7 Corrections: (The following items were deleted from the chart) 12/21 18:32 17:17 EKG - Nurse/Tech ordered. [facility] 19:44 19:34 12/22/2019 19:34 Discharged to Home. Impression: Dizziness and giddiness. rr5 Condition is Stable. Forms are Medication Reconciliation Form, Thank You Letter, Antibiotic Education, Prescription Opioid Use. Follow up: Private Physician; When: 2 - 3 days; Reason: If symptoms return, Recheck today's complaints, Re-evaluation by your physician. [facility]
--- NOTE | 2019-12-22 19:35 | ER ---
Nurse's Notes [facility] Name: Laney Griffith Age: 34 yrs Sex: Female : 1985 Arrival Date: 12/22/2019 Time: 15:54 Bed 7 Private MD: Diagnosis: Dizziness and giddiness Presentation: 12/21 16:00 Chief complaint: Patient states: Noticed both eyes watering today, took 2 sudafeds that ll1 didn't help. Then started to have N/V with dizziness after. Thinks she might have sinus infection. Had UTI that she was taking antibiotic for, but stopped due to vaginal itching. Coronavirus screen: Proceed with normal triage. Patient denies a cough. Patient reports shortness of breath or difficulty breathing. Patient denies measured and/or subjective temperature greater than 100.4F prior to today's visit. Patient denies travel on a cruise ship or to a country the [facility] currently lists as an affected area. Patient denies contact with known and/or suspected case of COVID-19. COVID negative last week. Ebola Screen: Patient denies travel to an Ebola-affected area in the 21 days before illness onset. Initial Sepsis Screen: Does the patient meet any 2 criteria? HR > 90 bpm. No. Patient's initial sepsis screen is negative. Does the patient have a suspected source of infection? No. Patient's initial sepsis screen is negative. Risk Assessment: Do you want to hurt yourself or someone else? Patient reports no desire to harm self or others. Onset of symptoms was December 22, 2019. 16:00 Method Of Arrival: Ambulatory ll1 16:00 Acuity: BRUCE 3 ll1 PSYCH THERAPIST: 19:42 no period since 6 months ago rr5 Historical: - Allergies: 16:04 ACETAMINOPHEN; ll1 16:04 Codeine; ll1 16:04 hydrocodone bitartrate; ll1 - PMHx: 16:04 Anxiety; Diabetes - NIDDM; Hypertension; ibs; Depression; ll1 - PSHx: 16:04 ; ll1 - Immunization history:: Adult Immunizations up to date, Flu vaccine is not up to date. - Social history:: Smoking status: Patient reports the use of cigarette tobacco products, smokes two packs cigarettes per day. Patient/guardian denies using alcohol, street drugs. Screenin:50 Abuse screen: Denies threats or abuse. Denies injuries from another. Nutritional sv screening: No deficits noted. Tuberculosis screening: No symptoms or risk factors identified. Fall Risk None identified. Assessment: 17:50 General: Appears in no apparent distress. comfortable, well developed, Behavior is sv calm, cooperative, appropriate for age. General:. Pain: Complains of pain in left maxillary sinus and right maxillary sinus Pain currently is 1 out of 10 on a pain scale. Neuro: Level of Consciousness is awake, alert, obeys commands, Oriented to person, place, time, situation, Gait is steady, Speech is normal. Neuro: Reports dizziness. Respiratory: Airway is patent Respiratory effort is even, unlabored, Respiratory pattern is regular, symmetrical. GI: Abdomen is round Reports nausea, vomiting, but none currently. EENT: Reports green eye drainage. Derm: Skin is normal. Musculoskeletal: Range of motion: intact in all extremities. 17:55 Reassessment: Pt stated "Why do I need an EKG?" Informed pt d/t her dizziness. Pt sv stated "No I don't think I need that. I think I requested the wrong thing. I wanted a HA1C." Informed pt I would inform Mg VYAS. 19:32 Reassessment: Patient and/or family updated on plan of care and expected duration. Pain jd3 level reassessed. Patient is alert, oriented x 3, equal unlabored respirations, skin warm/dry/pink. provider at bedside. General: Appears in no apparent distress. comfortable, Behavior is calm, cooperative, appropriate for age. Neuro: Level of Consciousness is awake, alert, obeys commands, Oriented to person, place, time, situation, Reports dizziness. Cardiovascular: Capillary refill < 3 seconds Patient's skin is warm and dry. Respiratory: Airway is patent Respiratory effort is even, unlabored, Respiratory pattern is regular, symmetrical. GI: Abdomen is round non-distended, Reports nausea. : No signs and/or symptoms were reported regarding the genitourinary system. EENT: Reports eye drainage. Derm: Skin is intact, Skin is dry, Skin is normal, Skin temperature is warm. Musculoskeletal: Circulation, motion, and sensation intact. Range of motion: intact in all extremities. 19:43 Reassessment: Patient appears in no apparent distress at this time. Patient is alert, rr5 oriented x 3, equal unlabored respirations, skin warm/dry/pink. discharge instruction given and explained without complaints made. Vital Signs: 16:00 BP 127 / 81; Pulse 99; Resp 18; Temp 98.3; Pulse Ox 98% ; Weight 88.45 kg; Height 5 ft. ll1 3 in. (160.02 cm); Pain 1/10; 16:30 BP 123 / 83; ll1 19:05 BP 118 / 70; Pulse 95; Resp 17; Pulse Ox 99% ; rr5 19:43 Temp 97.5; rr5 16:00 Body Mass Index 34.54 (88.45 kg, 160.02 cm) ll1 ED Course: 15:54 Patient arrived in ED. fj1 16:03 Triage completed. ll1 16:04 Arm band placed on Patient notified of wait time. ll1 17:05 Mg Belle PA is PHCP. m 17:05 Alan Santiago MD is Attending Physician. jmm 17:42 Sunita Oconnor, ELIZABETH is Primary Nurse. sv 17:50 Patient has correct armband on for positive identification. Placed in gown. Bed in low sv position. Call light in reach. Door closed. Head of bed elevated. 18:23 CT Head Brain wo Cont In Process Unspecified. EDMS 19:00 Report given to Dylan JOHNSON and Michael JOHNSON. sv 19:27 Primary Nurse role handed off by Sunita Oconnor, ELIZABETH sv 19:32 Dylan Celestin, ELIZABETH is Primary Nurse. jd3 19:41 No provider procedures requiring assistance completed. Patient did not have IV access rr5 during this emergency room visit. Administered Medications: 17:55 Drug: Ondansetron (Zofran) 4 mg Route: PO; sv 19:44 Follow up: Response: No adverse reaction rr5 18:00 Drug: Meclizine 50 mg Route: PO; sv 19:44 Follow up: Response: No adverse reaction rr5 Point of Care Testing: Blood Glucose: 16:30 Blood Glucose: 101 mg/dL; ll1 Ranges: Outcome: 19:34 Discharge ordered by . jmm 19:41 Discharged to home ambulatory. rr5 19:41 Condition: stable 19:41 Discharge instructions given to patient, Instructed on discharge instructions, follow up and referral plans. medication usage, Demonstrated understanding of instructions, follow-up care, medications, Prescriptions given X 2. 19:44 Patient left the ED. rr5 Signatures: Dispatcher [employer] Sunita Ricci, RN Mg Wade PA PA jmm Davies, Jonathon, RN RN jd3 Michael Nash RN RN rr5 Robby May fj1 Freeman Lam RN RN ll1
[2019-12-22 20:00] VITALS: BP 118/70; O2SAT 99
[2019-12-22 20:01] VITALS: TEMP 97.5
== END 2019-12-22 19:44 | disposition home or self-care (01) ==
LOC: ER 15:46
DX: R42 Dizziness and giddiness (principal); R11.2 Nausea with vomiting, unspecified; I10 Essential (primary) hypertension; E11.9 Type 2 diabetes mellitus without complications; Z88.5 Allergy status to narcotic agent; Z88.6 Allergy status to analgesic agent
CPT/HCPCS: 70450; 82947; 99283; J8597

== ENCOUNTER 2020-10-12 01:27 | Emergency (ER) | payer BC ==
--- NOTE | 2020-10-12 01:49 | EDPHYS ---
Physician Documentation [facility] Name: Laney Griffith Age: 34 yrs Sex: Female : 1985 Arrival Date: 10/12/2020 Time: 01:28 Bed 6 Private MD: ED Physician Gabino Hein HPI: 10/12 01:44 This 34 yrs old Female presents to ER via EMS with complaints of Breathing rn Difficulty. 01:44 The patient has shortness of breath with light activity, during heavy activity. Onset: rn The symptoms/episode began/occurred today. Duration: The symptoms are continuous. The patient's shortness of breath is aggravated by exertion, is alleviated by nebulizer treatment. Associated signs and symptoms: Pertinent negatives: non-productive cough, productive cough, diaphoresis, fever, hemoptysis, loss of consciousness, vomiting. Severity of symptoms: At their worst the symptoms were moderate in the emergency department the symptoms have improved. The patient has experienced similar episodes in the past. Reports hx of COPD, had trouble breathing while at home during moderate exertion, no fever, no chest pain, no cough, improved with breathing treatment, no intervention given.. SURGICAL ORDERLY: 01:35 LMP 10/12/2020 Historical: - Allergies: 01:34 ACETAMINOPHEN; 01:34 Codeine; 01:34 hydrocodone bitartrate; - Home Meds: 01:34 Wellbutrin Oral [Active]; - PMHx: 01:34 Anxiety; Depression; Diabetes - NIDDM; Hypertension; ibs; wh - Immunization history:: Adult Immunizations not up to date. - Social history:: Smoking status: Patient reports the use of cigarette tobacco products, smokes two packs cigarettes per day. Patient/guardian denies using alcohol, street drugs. - Family history:: not pertinent. - Hospitalizations: : No recent hospitalization is reported. ROS: 01:44 Constitutional: Negative for fever, chills, and weight loss, Eyes: Negative for injury, rn pain, redness, and discharge, Neck: Negative for injury, pain, and swelling, Cardiovascular: Negative for chest pain, palpitations, and edema, Respiratory: + sob Abdomen/GI: Negative for abdominal pain, nausea, vomiting, diarrhea, and constipation, Back: Negative for injury and pain, MS/Extremity: Negative for injury and deformity, Skin: Negative for injury, rash, and discoloration, Neuro: Negative for headache, weakness, numbness, tingling, and seizure, Psych: Negative for suicide ideation, homicidal ideation, and hallucinations. Exam: 01:44 Constitutional: This is a well developed, well nourished patient who is awake, alert, rn and in no acute distress. Head/Face: Normocephalic, atraumatic. Eyes: Pupils equal round and reactive to light, extra-ocular motions intact. Lids and lashes normal. Conjunctiva and sclera are non-icteric and not injected. Cornea within normal limits. Periorbital areas with no swelling, redness, or edema. ENT: No stridor Cardiovascular: Regular rate and rhythm. No pulse deficits. Respiratory: No increased work of breathing, no retractions or nasal flaring. Abdomen/GI: Soft, non-tender Skin: Warm, dry MS/ Extremity: Pulses equal, no cyanosis. Neurovascular intact. Full, normal range of motion. Equal circumference. Neuro: Awake and alert, GCS 15, oriented to person, place, time, and situation. Cranial nerves II-XII grossly intact. Motor strength 5/5 in all extremities. Sensory grossly intact. Cerebellar exam normal. Normal gait. Vital Signs: 01:33 BP 148 / 93; Pulse 98; Resp 20; Temp 98.7(O); Pulse Ox 100% on R/A; Weight 85.73 kg; oe Height 5 ft. 3 in. (160.02 cm); 01:33 Body Mass Index 33.48 (85.73 kg, 160.02 cm) oe MDM: 01:30 Patient medically screened. rn 01:44 Differential diagnosis: Anxiety Reaction Chronic Obstructive Pulmonary Disease rn Pneumothorax reactive airway disease. Data reviewed: vital signs, nurses notes, and as a result, I will discharge patient. Counseling: I had a detailed discussion with the patient and/or guardian regarding: the historical points, exam findings, and any diagnostic results supporting the discharge/admit diagnosis, the need for outpatient follow up, to return to the emergency department if symptoms worsen or persist or if there are any questions or concerns that arise at home. Response to treatment: the patient's symptoms have markedly improved after treatment, the patient's condition has returned to base line, the patient is now symptom free, and as a result, I will discharge patient. Refusal of service: The patient/guardian displays adequate decision making capability and despite a detailed discussion of alternatives, benefits, risks, and consequences refuses: all X-rays. ED course: Pt refuses xrays, no oxygen requirement, states feels much better, will dc home with steroids and return precautions. Administered Medications: 03:03 Drug: predniSONE 60 mg Route: PO; 03:08 Follow up: Response: No adverse reaction 03:03 Drug: Xopenex 1.25 mg Route: Inhalation; 03:07 Follow up: Response: No adverse reaction; Wheezing diminished Disposition: 10/12/20 01:49 Discharged to Home. Impression: Chronic obstructive pulmonary disease with (acute) exacerbation. - Condition is Stable. - Discharge Instructions: Chronic Obstructive Pulmonary Disease Exacerbation. - Prescriptions for Prednisone 20 mg Oral Tablet - take 3 tablet by ORAL route once daily for 5 days; 15 tablet. Albuterol Sulfate 90 mcg/actuation - inhale 1-2 puff by INHALATION route every 4-6 hours; 1 Inhaler. - Medication Reconciliation Form, Thank You Letter, Antibiotic Education, Prescription Opioid Use form. - Follow up: Private Physician; When: As needed; Reason: Recheck today's complaints, Re-evaluation by your physician. - Problem is an acute exacerbation. - Symptoms have improved. Signatures: Dispatcher [employer] MARKND Gabino Hein MD MD rn Habalo, Winsy, RN RN [facility] Corrections: (The following items were deleted from the chart) 01:42 01:31 Chest Single View+RAD.RAD.BRZ ordered. [facility] 03:08 01:49 10/12/2020 01:49 Discharged to Home. Impression: Chronic obstructive pulmonary mw2 disease with (acute) exacerbation. Condition is Stable. Forms are Medication Reconciliation Form, Thank You Letter, Antibiotic Education, Prescription Opioid Use. Follow up: Private Physician; When: As needed; Reason: Recheck today's complaints, Re-evaluation by your physician. Problem is an acute exacerbation. Symptoms have improved. rn
--- NOTE | 2020-10-12 01:49 | ER ---
Nurse's Notes [facility] Name: Laney Griffith Age: 34 yrs Sex: Female : 1985 Arrival Date: 10/12/2020 Time: 01:28 Bed 6 Private MD: Diagnosis: Chronic obstructive pulmonary disease with (acute) exacerbation Presentation: 10/12 01:31 Chief complaint: EMS states: C/O SOB that started 6 hours ago. Pt stated Hx of COPD, wh family member gave her inhaler, stated it helped her breathe more better. Pt sats at 100% RA. Coronavirus screen: Client denies travel out of the [place] in the last 14 days. shortness of breath, Client presents with at least one sign or symptom that may indicate coronavirus-19. Standard/surgical mask placed on the client. Ebola Screen: Patient negative for fever greater than or equal to 101.5 degrees Fahrenheit, and additional compatible Ebola Virus Disease symptoms Patient denies exposure to infectious person. Initial Sepsis Screen: Does the patient meet any 2 criteria? No. Patient's initial sepsis screen is negative. Does the patient have a suspected source of infection? No. Patient's initial sepsis screen is negative. Risk Assessment: Do you want to hurt yourself or someone else? Patient reports no desire to harm self or others. Onset of symptoms was October 12, 2020. 01:31 Method Of Arrival: EMS: [facility] 01:31 Acuity: BRUCE 4 Triage Assessment: 01:35 Respiratory: Onset: The symptoms/episode began/occurred just prior to arrival, the patient reports symptoms have resolved. PRESALES CONSULTANT: 01:35 LMP 10/12/2020 Historical: - Allergies: 01:34 ACETAMINOPHEN; 01:34 Codeine; 01:34 hydrocodone bitartrate; - Home Meds: 01:34 Wellbutrin Oral [Active]; - PMHx: 01:34 Anxiety; Depression; Diabetes - NIDDM; Hypertension; ibs; - Immunization history:: Adult Immunizations not up to date. - Social history:: Smoking status: Patient reports the use of cigarette tobacco products, smokes two packs cigarettes per day. Patient/guardian denies using alcohol, street drugs. - Family history:: not pertinent. - Hospitalizations: : No recent hospitalization is reported. Screenin:34 Abuse screen: Denies threats or abuse. Denies injuries from another. Nutritional wh screening: No deficits noted. Tuberculosis screening: No symptoms or risk factors identified. Fall Risk None identified. Assessment: 01:34 General: Appears in no apparent distress. Behavior is calm, cooperative. Pain: Denies wh pain. Neuro: Level of Consciousness is awake, alert, obeys commands, Oriented to person, place, time, situation. Cardiovascular: Heart tones S1 S2 Rhythm is regular. Respiratory: Reports shortness of breath Airway is patent Respiratory effort is even, unlabored, Respiratory pattern is regular, symmetrical, Breath sounds are clear bilaterally. GI: Abdomen is round non-distended. : No signs and/or symptoms were reported regarding the genitourinary system. EENT: No signs and/or symptoms were reported regarding the EENT system. Derm: Skin is intact, is healthy with good turgor, Skin is pink, warm \T\ dry. normal. Musculoskeletal: Circulation, motion, and sensation intact. Vital Signs: 01:33 BP 148 / 93; Pulse 98; Resp 20; Temp 98.7(O); Pulse Ox 100% on R/A; Weight 85.73 kg; oe Height 5 ft. 3 in. (160.02 cm); 01:33 Body Mass Index 33.48 (85.73 kg, 160.02 cm) oe ED Course: 01:28 Patient arrived in ED. cl3 01:30 Gabino Hein MD is Attending Physician. rn 01:30 Millie Lawson RN is Primary Nurse. 01:33 Triage completed. 01:35 Arm band placed on right wrist. wh 01:35 Patient has correct armband on for positive identification. Bed in low position. Call light in reach. Side rails up X 1. Pulse ox on. NIBP on. 01:35 No provider procedures requiring assistance completed. Patient did not have IV access during this emergency room visit. Administered Medications: 03:03 Drug: predniSONE 60 mg Route: PO; 03:08 Follow up: Response: No adverse reaction 03:03 Drug: Xopenex 1.25 mg Route: Inhalation; 03:07 Follow up: Response: No adverse reaction; Wheezing diminished wh Outcome: 01:49 Discharge ordered by . rn 03:08 Patient left the ED. mw2 03:08 Discharged to home ambulatory. 03:08 Condition: stable 03:08 Discharge instructions given to patient, Instructed on discharge instructions, follow up and referral plans. medication usage, POC Demonstrated understanding of instructions, follow-up care, medications, POC Prescriptions given X 2. Signatures: Gabino Hein MD MD rn Luc Lujan Winsy, RN RN Theresa Olivares mw2 Karina Lam cl3 Corrections: (The following items were deleted from the chart) 01:42 01:36 To radiology for Chest Single View+RAD.RAD.BRZ. EDMS
[2020-10-12] MEDS ORDERED: predniSONE 20 MG TAB ONE (03:08)
[2020-10-12] MEDS ORDERED: LEVALBUTEROL 1.25 MG/3 ML NEB ONE (03:09)
[2020-10-12 03:25] VITALS: BP 148/93; TEMP 98.7; O2SAT 100
== END 2020-10-12 03:08 | disposition home or self-care (01) ==
LOC: ER 01:27
DX: J44.1 Chronic obstructive pulmonary disease with (acute) exacerbation (principal); I10 Essential (primary) hypertension; F41.8 Other specified anxiety disorders; F17.210 Nicotine dependence, cigarettes, uncomplicated; Z88.5 Allergy status to narcotic agent; Z88.6 Allergy status to analgesic agent
CPT/HCPCS: 99284; J7512

== ENCOUNTER 2022-01-11 16:08 | Emergency (ER) | payer BC ==
--- OUTSIDE RECORDS SUMMARY | 2022-01-11 16:12 | XMS REPORT | Continuity of Care Document ---
:1985 Author Organization [facility] t Address [address] [place] [address] Dr. Diaz. [address] [place] [address] Care Team Providers Name Role Phone Lefty Abdul Primary Care Physician Melissa Israel Attending Clinician Unavailable Cj LOERA, Kadeem Mclean Attending Clinician Jake LOERA Attending Clinician Jake LOERA Admitting Clinician Payers Payer Name Policy Type Policy Number Effective Date Expiration Date S ource Problems Condition Condition Condition Status Onset Resolution Last Treating Co mments Source Name Details Category Date Date Treatment Clinician Date Morbid Morbid Disease Active Univers obesity obesity 6- [place] of with [place] mass [place] mass index 00 [place] dical of of Branch 40.0-49.9 40.0-49.9 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 6-27 ity of with with 00:00: [place] hypoxia hypoxia 00 Medical Branch Obesity Obesity Disease Active Univers (BMI (BMI 6-27 ity of 30-39.9) 30-39.9) 00:00: [place] 00 Medical Branch Allergies, Adverse Reactions, Alerts Allergy Allergy Status Severity Reaction(s) Onset Inactive Treating Comm ents Source Name Type Date Date Clinician MOLD DRUG Active Anaphylaxis Unive rs INGREDI 6-27 ity of 00:00: [place] 00 Medical Branch Mold Propensi Active Anaphylaxis Uni vers ty to 01-25 ity of adverse 00:00: [place] reaction 00 Medical s Branch NO KNOWN Drug Active Univers ALLERGIE Class ity of S [facility] Social History Social Habit Start Date Stop Date Quantity Comments Source Exposure to Not sure [facility] SARS-CoV-2 (event) Medica l [place] Sex Assigned At [birth year] [facility] 00:00:00 00:00:00 [facility] Smoking Status Start Date Stop Date Source Unknown if ever smoked [facility] Medications Ordered Filled Start Stop Current Ordering Indication Dosage Frequency Signature Comments Components Source Medication Medication Date Date Medication? Clinician (SIG) Name Name predniSONE Yes 20mg 20 mg, Unive rs (DELTASONE) 01-29 Oral, ity of tablet 20 14:00: DAILY, [place] mg 00 First dose Medical on Laure [place] 01/29/21 at 0900, Until Discontinu ed, Routine ALPRAZolam 2020- No 2mg Take 2 mg U nivers 1 mg tablet 01-29 by mouth 3 i ty of 08:42: 00:00 (three) [place] 32 :00 times Medical daily. Branch ARIPiprazol 2020- No 20mg Take 20 mg Univers e (ABILIFY) 01-29 by mouth ity of 20 mg 08:42: 00:00 daily. [place] tablet 32 :00 Medical Branch Sliding Yes [id number] Subcutaneo Univers Scale 01-29 us, TID ity of Insulin - 02:00: MEALS+HS, [place] as Lispro 00 First dose Medical (HumaLOG) + (after Branch Fsbg last Testing modificati on) on Tue01/28/21 at 2100, Until Discontinu ed, Routine famotidine Yes 20mg 20 mg, Unive rs (PEPCID AC) 01-29 Oral, BID, it y of tablet 20 01:00: [place] dose [place] mg 00 on Tue Medical 01/28/21 at Branch 2000, Until Discontinu ed, Routine ALPRAZolam Yes .25mg 0.25 mg, Un mery (XANAX) 6-30 Oral, ity of tablet 0.25 15:28: TIDPRN, [place] as mg 17 Starting Medical [facility] 01/28/21 at 1028, Until Discontinu ed, Routine, anxiety ipratropium Yes 3mL 3 mL, [facility] rs -albuteroL 01-28 Inhalation ity of (DUONEB) 13:00: , QID, [place] 0.5 mg-3 00 First dose Medic al mg(2.5 mg (after Branch base)/3 mL last nebulizer modificati solution 3 on) on 01/28/21 at 0800, Until Discontinu ed, Routine dexMEDEtomi 2020- No .2ug/kg 0.2-1.5 Univers dine 400 01-28 /h mcg/kg/hr ity o f mcg in 0.9 09:44: 18:54 ?80 kg [place] % NaCl 100 43 :37 (4-30 Medical mL mL/hr), IV Branch (PRECEDEX) Infusion, RTU IV TITRATE, infusion Sedation-R ASS score (0 to -1), Starting [facility] 01/28/21 at 0444
In itiate infusion at 0.2 mcg/kg/hr and titrate by 0.1 mcg/kg/hr every 30 minutes to goal sedation score. Maximum dose = 1.5 mcg/kg/hr. If goal not maintained at maximum allowed dose, contact prescriber .
cloNIDine 2020- No .1mg 0.1 mg, [facility] ers (CATAPRES) 01-28 Oral, ity of tablet 0.1 02:29: 02:39 ONCE, 1 Manish as mg 00 :00 dose, [facility] 01/27/21 at Branch 2130, MASHA hydralAZINE Yes 20mg 20 mg, [facility] ers (APRESOLINE 01-28 Slow IV ity o f ) injection 01:15: Push, [place] 20 mg 30 Q4HPRN, Medical Starting Branch [facility] 01/27/21 at 2015, Until Discontinu ed, Routine, DBP=>100; SBP=>160<b r>Indicati on: Hypertensi ve Emergency methylPREDN 2020- No 40mg 40 mg, Uni vers ISolone sod 6-30 06-30 Intravenou i ty of succ 01:00: 18:54 s, Q12H, [place] (SOLU-MEDRO 00 :09 First dose Me dical L (PF)) (after Branch injection last 40 mg modificati on) on Tue01/27/21 at 2000, Until Discontinu ed, Routine vancomycin 2020- No 15mg/kg 1,250 mg Univers 1250 mg in 01-27 (rounded ity of NS 250 mL 17:00: 12:28 from 1,200 [place] RTU IV 00 :37 mg = 15 Medical Piggyback mg/kg ?80 Branc h 1,250 mg kg), IV Piggyback, Q12H ABX, First dose on Tue01/27/21 at 1200, Until Discontinu ed
Reas on for Anti-Infec tive: Documented Infection< br>Documen vincenzo Infection Site: Respirator y
Durat ion of Therapy: 7 days meropenem Yes 500mg 500 mg, IV U nivers (MERREM) 01-27 Piggyback, ity o f 500 mg in 16:30: Administer [place] NaCl 0.9% 00 over 60 Medical (NS) 100 mL Minutes, Bran ch MINI-BAG Q6H ABX, First dose on Tue01/27/21 at 1130, Until Discontinu ed, MASHA
Re stricted use approved by: [facility] PROVIDER<b r>Reason for Anti-Infec tive: Documented Infection< br>Documen vincenzo Infection Site: Respirator y
Durat ion of Therapy: 7 days propofoL IV 2020- No 5ug/kg/ 5-50 Un mery infusion 01-26 min mcg/kg/min ity of 23:09: 20:09 ?80 kg [place] 10 :04 (2.4-24 Medical mL/hr), IV Branch Infusion, TITRATE, Sedation-R ASS score (-1 to -2), Starting Tue01/26/21 at 1809
In itiate infusion at 5 mcg/kg/min and titrate by 5 mcg/kg/min every 30 seconds to 10 minutes to goal sedation score. Maximum dose = 50 mcg/kg/min . If goal not maintained at maximum allowed dose, contact prescriber . &nbs p;Tubing and unused portions of vials should be discarded after 12 hours.
dexMEDEtomi 2020- No .2ug/kg 0.2-1.5 Univers dine 200 01-26 /h mcg/kg/hr ity o f mcg in 0.9 15:45: 20:09 ?80 kg [place] % NaCl 50 33 :04 (4-30 Medical mL mL/hr), IV Branch (PRECEDEX) Infusion, RTU IV TITRATE, infusion Sedation-R ASS score (0 to -1), Starting 01/26/21 at 1045
In itiate infusion at 0.2 mcg/kg/hr and titrate by 0.1 mcg/kg/hr every 30 minutes to goal sedation score. Maximum dose = 1.5 mcg/kg/hr. If goal not maintained at maximum allowed dose, contact prescriber .
azithromyci 2020- No 500mg 500 mg, IV Univers n 01-26 Piggyback, ity of (ZITHROMAX) 09:00: 15:38 Q24H ABX, [place] 500 mg in 00 :30 5 doses, Medica l NaCl 0.9% First dose Bran ch (NS) 250 mL on Tue VIAL-MATE 01/26/21 at IV 0400, Last piggyback dose on Tue01/30/21 at 0400, 250 mL
Reas on for Anti-Infec tive: Empiric Therapy for Suspected Infection< br>Empiric Therapy Site: Respirator y
Durat ion of therapy: 7 days acetaminoph Yes 650mg 650 mg, Un mery en 01-26 Oral, ity of (TYLENOL) 00:52: Q4HPRN, [place] tablet 650 01 Starting Medic al mg [facility] 01/25/21 at 1952, Until Discontinu ed, Routine, Temp > 38.5 C enoxaparin Yes 40mg 40 mg, Unive rs (LOVENOX) 01-25 Subcutaneo ity of injection 22:00: us, DAILY, [place] 40 mg 00 First dose Medical on [facility] 01/25/21 at 1700, Until Discontinu ed, Routine Sliding No Subcutaneo Uni vers Scale 01-25 , Q6H, ity of Insulin - 17:00: 01:33 First dose [place] Lispro 00 :49 (after Medical (HumaLOG) + last Branch Fsbg modificati Testing on) on [place] 01/25/21 at 1200, Until Discontinu ed, Routine iopamidol 2020- No [id number] 100mL 100 mL, Univers (ISOVUE 01-25 Intravenou ity o f 370-500 mL) 17:00: 16:34 s, ONCE, 1 [place] injection 00 :00 dose, [place] Medic al 100 mL 01/25/21 at Branch 1200, Routine piperacilli 2020- No 3.375g 3.375 g, Univers n-tazobacta 01-25 IV ity of m (ZOSYN) 13:30: 15:38 Piggyback, [place] 3.375 g in 00 :30 Q6H ABX, Medic al NaCl 0.9% First dose Bran ch (NS) 100 mL on [place] MINI-BAG 01/25/21 at 0830, Until Discontinu ed, 100 mL
R christiano for Anti-Infec tive: Empiric Therapy for Suspected Infection< br>Empiric Therapy Site: Respirator y
Durat ion of therapy: 7 days famotidine 2020- No 20mg 20 mg, IV U nivers 20 mg in NS 01-25 Piggyback, i ty of 50 ml 13:00: 18:53 Q12H, [place] (PEPCID) 20 00 :32 First dose Me dical mg/50 mL on [place] Branch Piggyback 01/25/21 at 20 mg 0800, Until Discontinu ed, 50 mL Sliding No Subcutaneo Uni vers Scale 01-25 us, TID ity of Insulin - 13:00: 15:51 MEALS+HS, [place] Lispro 00 :07 First dose Medical (HumaLOG) + on [facility] Fsbg 01/25/21 at Testing 0800, Until Discontinu ed, Routine midazolam 2020- No 1mg/h 1-10 mg/hr Univers (VERSED) 01-25 (1-10 ity of STD 50mg in 12:36: 14:45 mL/hr), IV [place] NaCl 0.9% 20 :49 Infusion, Medic al (NS) 50 mL TITRATE, Branc h infusion Sedation-R RTU ASS score (-1 to -2), Starting 01/25/21 at 0736
In itiate infusion at 1 mg/hr and titrate by 1 mg/hr every 3 minutes to 10 minutes to goal sedation score. Maximum dose = 10 mg/hr.&nbs p; If goal not maintained at maximum allowed dose, contact prescriber .
ipratropium No 3mL 3 mL, Univ ers -albuteroL 01-2530 Inhalation it y of (DUONEB) 11:45: 01:11 , Q4H, [place] 0.5 mg-3 00 :45 First dose Medic al mg(2.5 mg on [place] base)/3 mL 01/25/21 at nebulizer 0645, solution 3 Until mL Discontinu ed, Routine methylPREDN 2020- No 40mg 40 mg, Uni vers ISolone sod 01-25 Intravenou i ty of succ 11:45: 20:09 s, Q8H, [place] (SOLU-MEDRO 00 :04 First dose Me dical L (PF)) on [place] injection 01/25/21 at 40 mg 0645, Until Discontinu ed, Routine glucagon Yes 1mg 1 mg, Univers (GLUCAGEN 01-25 Intramuscu ity of DIAGNOSTIC 11:32: lar, PRN, [place] KIT) 50 Starting Medical injection 1 [place] mg 01/25/21 at 0632, Until Discontinu ed, MASHA, Blood Glucose < or = 70 mg/dL and patient is unable to swallow or has mental changes. dextrose 50 Yes 25mL 25 mL, Univ ers % in water 01-25 Slow IV ity of (D50W) 11:32: Push, PRN, [place] injection 50 Starting Medica l 25 mL [place] 01/25/21 at 0632, Until Discontinu ed, MASHA, Blood Glucose < or = 70 mg/dL and patient is unable to swallow or has mental status changes. fentaNYL PF 2020- No 25ug/h 25-200 U nivers (SUBLIMAZE) 01-25 06-29 mcg/hr ity o f STD 2,500 10:24: 20:09 (2.5-20 [place] mcg in NaCl 37 :04 mL/hr), IV Me dical 0.9% (NS) Infusion, Branc h 250 mL TITRATE, infusion CPOT/Pain RTU Scale Goals Determined by Provider, Starting [place] 01/25/21 at 0524
In itiate infusion at 25 mcg/hr. Titrate by 25 mcg/hr every 1 minute to 15 minutes to identified goal pain and/or sedation scores. Maximum dose = 200 mcg/hr. If goal not maintained at maximum allowed dose, contact prescriber .
rocuronium 2020- No 50mg 50 mg, IV U nivers (ZEMURON) 01-25 Push, ity of injection 08:42: 08:43 ONCE, 1 [place] 50 mg 00 :00 dose, [facility] 01/25/21 at Branch 0345, Routine
retail team member approving Restricted medication : KADEEM CORONA piperacilli 2020- No 3.375g 3.375 g, Univers n-tazobacta 01-25 IV ity of m (ZOSYN) 08:00: 08:03 Piggyback, [place] 3.375 g in 00 :00 ONCE, 1 Medica l NaCl 0.9% dose, [place] Branc h (NS) 100 mL 01/25/21 at MINI-BAG 0300, 100 mL
Reas on for Anti-Infec tive: Documented Infection< br>Documen vincenzo Infection Site: Respirator y
Durat ion of Therapy: Other (see Comments) propofoL IV 2020- No 5ug/kg/ 5-50 Un mery infusion 01-25 06-28 min mcg/kg/min ity of 06:36: 14:45 ?108.9 kg [place] 00 :49 (3.267-32. Medical 67 mL/hr, Branch rounded to 3.27-32.67 mL/hr), IV Infusion, TITRATE, Sedation-R ASS score (0 to -1), Starting [place] 01/25/21 at 0136
In itiate infusion at 5 mcg/kg/min and titrate by 5 mcg/kg/min every 30 seconds to 10 minutes to goal sedation score. Maximum dose = 50 mcg/kg/min . If goal not maintained at maximum allowed dose, contact prescriber . &nbs p;Tubing and unused portions of vials should be discarded after 12 hours.
ipratropium 3mL 3 mL, Univ ers -albuteroL 01-25 Inhalation it y of (DUONEB) 06:15: 06:00 , ONCE [place] 0.5 mg-3 00 :00 NOW, 1 Medical mg(2.5 mg dose, [facility] h base)/3 mL 01/25/21 at nebulizer 0115, solution 3 Routine mL No known No Univers medications [facility] No known No Univers medications [facility] Vital Signs Vital Name Observation Time Observation Value Comments Source Systolic blood 2021-04-02 06:52:00 155 mm[Hg] [facility] Diastolic blood 2021-04-02 06:52:00 92 mm[Hg] [facility] Heart rate 2021-04-02 06:52:00 116 /min [facility] Body temperature 2021-04-02 06:52:00 36.94 [facility] Respiratory rate 2021-04-02 06:52:00 18 /min [facility] Body height 2021-04-02 06:52:00 160 cm [facility] Body weight 2021-04-02 06:52:00 81.647 kg [facility] BMI 2021-04-02 06:52:00 31.89 kg/m2 [facility] Oxygen saturation in 2021-04-02 06:52:00 97 /min [facility] Arterial blood by [facility] Pulse oximetry Branch Systolic blood 2021-01-29 07:29:00 164 mm[Hg] Univer [facility] Diastolic blood 2021-01-29 07:29:00 88 mm[Hg] [facility] rsity of pressure [facility] Heart rate 2021-01-29 07:29:00 94 /min [facility] Respiratory rate 2021-01-29 07:29:00 21 /min [facility] Oxygen saturation in 2021-01-29 07:29:00 98 /min [facility] Arterial blood by [facility] Pulse oximetry [place] Body temperature 2021-01-29 03:59:00 36.39 [facility] Body weight 2021-01-29 01:00:00 80.876 kg [facility] BMI 2021-01-29 01:00:00 32.61 kg/m2 [facility] Body height 2021-01-25 06:29:00 157.5 cm [facility] Procedures Procedure Date / Time Performing Clinician Source Performed POCT GLUCOSE (AUTOMATED) 2021-01-29 01:58:00 Jake [facility] POCT GLUCOSE (AUTOMATED) 2021-01-28 21:31:00 [facility] POCT GLUCOSE (AUTOMATED) 2021-01-28 17:45[facility] 2021-01-28 10:10:00 Ulises [facility] BASIC METABOLIC PANEL 2021-01-28 10:10:00 Nichole Montgomery [facility] (NA, K, CL, CO2, GLUCOSE, Medica l Branch BUN, CREATININE, CA) CBC WITH DIFF 2021-01-28 10:10:00 Ulises [facility] POCT GLUCOSE (AUTOMATED) 2021-01-28 10:00:00 Garg, [facility] POCT GLUCOSE (AUTOMATED) 2021-01-28 04:07[facility] 2021-01-27 23:29[facility] AC PANEL 20 + LACTIC ACID 2021-01-27 16:56:00 Nichole Montgomery [facility] POCT GLUCOSE (AUTOMATED) 2021-01-27 16:49:00 [facility]ST 1 VW 2021-01-27 16:41:06 Ulises [facility] SPUTUM CULTURE 2021-01-27 13:32:00 Ulises [facility] BLOOD CULTURE SCREEN 2021-01-27 12:57:00 Nichole Montgomery [facility] URINALYSIS 2021-01-27 12:57:00 Ulises [facility] URINE CULTURE 2021-01-27 12:57:00 Ulises [facility] POCT GLUCOSE (AUTOMATED) 2021-01-27 11:18:00 [facility] ARTERIAL BLOOD 2021-01-27 09:50:00 Melchor Garg [facility] MAGNESIUM 2021-01-27 09:23:00 Ulises [facility] BASIC METABOLIC PANEL 2021-01-27 09:23:00 Nichole Montgomery [facility] (NA, K, CL, CO2, GLUCOSE, Medica l Branch BUN, CREATININE, CA) CBC WITH DIFF 2021-01-27 09:23:00 Ulises [facility] POCT GLUCOSE (AUTOMATED) 2021-01-27 05:00:00 [facility] ([facility]OMATED) 2021-01-26 23:24:00 [facility] PO[facility]UCOSE (AUTOMATED) 2021-01-26 16:58:00 Jake [facility] POCT GLUCOSE (AUTOMATED) 2021-01-26 10:51:00 [facility] TROPONIN I 2021-01-26 09:16:00 Abdelrahman Garg [facility] BASIC METABOLIC PANEL 2021-01-26 09:16:00 Abdelrahman Garg [facility] (NA, K, CL, CO2, GLUCOSE, Medica l Branch BUN, CREATININE, CA) CBC WITH DIFF 2021-01-26 09:16:00 Abdelrahman Garg [facility] POCT GLUCOSE (AUTOMATED) 2021-01-26 05:07:00 Abdelrahman Garg [facility] TROPONIN I 2021-01-25 23:24:00 Nichole Montgomery [facility] POCT GLUCOSE (AUTOMATED) 2021-01-25 22:18:00 Abdelrahman Garg [facility] POCT GLUCOSE (AUTOMATED) 2021-01-25 17:26:00 Abdelrahman Garg [facility] TRANSTHORACIC ECHO (TTE) 2021-01-25 17:25:00 Nichole Montgomery [facility] TROPONIN I 2021-01-25 17:09:00 Darek Byrd [facility] CT HEAD WO CONTRAST 2021-01-25 16:34:16 Abdelrahman Garg [facility] CT CHEST PULMONARY 2021-01-25 16:34:16 Abdelrahman Garg [facility] ANGIOGRAM [facility] POCT GLUCOSE (AUTOMATED) 2021-01-25 13:12:00 Abdelrahman Garg [facility] ACUTE CARE ARTERIAL BLOOD 2021-01-25 13:01:00 Melchor Garg [facility] GAS [facility] Branch MAGNESIUM 2021-01-25 12:42:00 Abdelrahman Garg [facility] TROPONIN I 2021-01-25 12:42:00 Abdelrahman Garg [facility] COMP. METABOLIC PANEL 2021-01-25 12:42:00 Abdelrahman Garg [facility] ([id number]) [facility] CBC WITHOUT DIFF 2021-01-25 12:42:00 Abdelrahman Garg [facility] GLYCOSYLATED HEMOGLOBIN 2021-01-25 12:42:00 [facility] ([facility] MRSA / MSSA SCREEN BY 2021-01-25 12:42:00 Abdelrahman Garg [facility] PCR, NARES [facility] Branch COVID-19 (MOLECULAR 2021-01-25 12:42:00 Abdelrahman Garg [facility] TESTING [facility] NUCLEIC ACID AMPLIFICATION) LAB ONLY COVID 2021-01-25 12:42:00 Abdelrahman Garg [facility] INTERPRETATION [facility] URINE DRUG (IMMUNOASSAY) 2021-01-25 12:37:00 Abdelrahman Garg [facility] - COMPREHENSIVE DRUG Medical Bra nch SCREEN GALV ONLY - URINE DRUG 2021-01-25 12:37:00 Abdelrahman Garg [facility] - MELISSA PANEL Medical Br anch SPUTUM CULTURE 2021-01-25 12:16:00 Abdelrahman Garg [facility] XR CHEST 1 VW 2021-01-25 11:57:52 Abdelrahman Garg [facility] AC PANEL 20 + LACTIC ACID 2021-01-25 09:08:00 Kadeem [facility]ona [facility] HB ECG ROUTINE & RHYTHM 2021-01-25 08:06:49 Kadeem Corona [facility] CRITICAL CARE 2021-01-25 08:06:00 Kadeem Corona [facility] NE INSERT EMERGENCY 2021-01-25 08:06:00 Kadeem Corona [facility] ENDOTRACH AIRWAY [facility] POCT TEST 2021-01-25 07:56:00 Kadeem Corona [facility] XR ABDOMEN 1 VW 2021-01-25 06:48:14 Kadeem Corona [facility] BLOOD CULTURE SCREEN 2021-01-25 06:34:00 Kadeem Corona [facility] TROPONIN I 2021-01-25 06:34:00 Kadeem Corona [facility] COMP. METABOLIC PANEL 2021-01-25 06:34:00 Kadeem Corona [facility] ([id number]) [facility] CBC WITH DIFF 2021-01-25 06:34:00 Kadeem Corona [facility] PROTHROMBIN TIME / INR 2021-01-25 06:34:00 Kadeem Corona [facility] N-TERMINAL PRO-BNP 2021-01-25 06:34:00 Kadeem Corona [facility] COVID-19 (ID NOW RAPID 2021-01-25 06:33:00 Kadeem Corona [facility] TESTING) Medical Branch LAB ONLY COVID 2021-01-25 06:33:00 Kadeem Corona [facility] INTERPRETATION [facility] XR CHEST 1 VW 2021-01-25 06:32:06 Kadeem Corona [facility] POCT GLUCOSE (AUTOMATED) 2021-01-25 05:50:00 Doctor Tyler, [facility] Name [facility] EMERGENCY DEPARTMENT 2021-01-25 05:01:00 Doctor Un[place]iff[place], [facility] DOCUMENTS [facility] [place] [facility] ADMISSION 2021-01-25 05:01:00 Doctor Unasscande, [facility] Name [facility] Encounters Start End Encounter Admission Attending Care Care Encounter Source Date/Time Date/Time Type Type Clinicians Facility Department ID 2021-08-[address] [id number] Common 11:21:05 Melissa [id number] [facility] 2021-04-02 2021-04-02 Emergency RIMB [id number] Univers 02:39:00 02:40:00 [place] [id number] [facility] [id number] [facility] [id number] [facility] 084 Branch 2021-04-02 2021-04-02 Emergency X [facility] ERT [id number] Univers 02:39:00 02:39:00 ity of [facility] 2021-01-25 2021-01-29 [facility] Kadeem Corona [facility] [id number] Univers 01:22:00 03:42:00 Encounter Abdelrahman Garg [facility] [id number] ity [facility] [id number] Cristofer mclean [facility] [id number] [address] ([facility] 2021-01-25 2021-01-25 Emergency X [place] ERT [id number] Univers 00:43:00 00:43:00 [facility] Results Test Description Test Time Test Comments Results Result Comments Source POCT GLUCOSE (AUTOMATED) 2021-01-29 01:58:57 Test Item Value Reference Range Interpretation Comme nts POCT GLU (test code = 1341059326) 137 mg/dL 70-110 H Lab Interpretation (test code = 24264-2) Abnormal [facility] GLUCOSE (AUTOMATED)2021-01-28 21:44:26 Test Item Value Reference Range Interpretation Comments POCT GLU (test code = 9165129282) 181 mg/dL 70-110 H Lab Interpretation (test code = Abnormal 22598-3) [facility] GLUCOSE (AUTOMATED)2021-01-28 17:54:59 Test Item Value Reference Range Interpretation Comments POCT GLU (test code = [id number]) 223 mg/dL 70-110 H Lab Interpretation (test code = Abnormal 63958-5) [facility] [id number] 15:56:44 Interval worsening of the right lung infiltrates. Left lung appearsslightly better aerated. Preliminary Report Dictated by Resident: Mita Lezama MD., have reviewed this study and agree with the abovereport.EXAM: XR CHEST 1 VW COMPARISON: Chest x-ray dated 627.1 HISTORY: asthma, hypoxia, intubated FINDINGS: Lines/tubes: The ETT and nasogastric tube are unchanged. Lungs: Interval worsening of the lung infiltrates on the right side withclearing of the infiltrates in the left upper lobe. No pneumothorax orpleural effusion. Heart/Mediastinum: The cardiomediastinal silhouette is normal in sizeaccounting for technique. Bones: No osseous lesions are detected. The soft tissues appear normal [facility], Radiant Results Inft User - 01/28/2021 10:57 AM CDT EXAM: XR CHEST 1 VWCOMPARISON: Chest x-ray dated 627.1HISTORY: asthma, hypoxia, intubated FINDINGS:Lines/tubes: The ETT and nasogastric tube are unchanged.L ungs: Interval worsening of the lung infiltrates on the right side withclearing of the infiltrates in the left upper lobe. No pneumothorax orpleural effusion.Heart/Mediastinum: The cardiomediastinal silhouette is normal in sizeaccounting for technique.Bones: No osseous lesions are detected. The soft ti ssues appear normalIMPRESSIONInterval worsening of the right lung infiltrates. Left lung appearsslightly better aerated.Preliminary Report Dictated by Resident: Peter Jules, Mita Ahumada MD., have reviewed this study and agree with the abovereport.[facility] [id number] 12:17:22 Test Item Value Reference Range Interpretation Comments URINE CULTURE (test No aerobic growth (< code = 630-4) 1000 CFU/mL) [facility]42 Test Item Value Reference Range Interpretation Comments MAGNESIUM (test code = 6644005976) 2.1 mg/dL 1.7-2.4 Lab Interpretation (test code = Normal 32633-0) [facility] (NA, K, CL, CO2, GLUCOSE, BUN, CREATININE, CA)2021-01-28 11:00:41 Test Item Value Reference Range Interpretation Comments NA (test code = 141 mmol/L 135-145 6649370948) K (test code = 4.0 mmol/L 3.5-5.0 9501135728) CL (test code = 106 mmol/L 98-108 4634230181) CO2 TOTAL (test code = 30 mmol/L 23-31 6933974973) AGAP (test code = 2-16 9857333338) BUN (test code = 23 mg/dL 7-23 7089403505) GLUCOSE (test code = 183 mg/dL 70-110 H 8928768917) CREATININE (test code = 0.50 mg/dL 0.50-1.04 8179708861) CALCIUM (test code = 7.9 mg/dL 8.6-10.6 L 4494126553) eGFR (test code = mL/min/1.73m2 2601403916) JOSE (test code = JOSE) Association of Glomerular Filtration Rate (GFR) and Staging of Kidney Disease* + --+ --+ ------+| GFR (mL/min/1.73 m2) ?| With Kidney Damage ?| ?Without Kidney Damage+ --------+ --------+ +| ?>90 ?| ?Stage one ?| ? Normal ?+ ---+ ---+ -------+| ?60-89 ?| ?Stage two ?| ? Decreased GFR ? + --+ --+ ------+| ?30-59 ?| ?Stage three ?| ? Stage three ? + --+ --+ ------+| ?15-29 ?| ?Stage four ? | ? Stage four ?+ ---+ ---+ -------+| ?<15 (or dialysis) ? ?| ?Stage five ? | ? Stage five ?+ ---+ ---+ -------+ *Each stage assumes the associated GFR level has been in effect for at least three months. ?Stages 1 to 5, with or without kidney disease, indicate chronic kidney disease. Notes: Determination of stages one and two (with eGFR >59mL/min/1.73 m2) requires estimation of kidney damage for at least three months as defined by structural or functional abnormalities of the kidney, manifested by either:Pathological abnormalities or Markers of kidney damage (including abnormalities in the composition of the blood or urine or abnormalities in imaging tests). Lab Interpretation Abnormal (test code = 25310-9) [facility] WITH [id number] 10:16:39 Test Item Value Reference Range Interpretation Comments WBC (test code = See_Comment H [Automated 9660-2) message] The system which generated this result transmit vincenzo reference range : 4.30 - 11.10 10*3/?L. The reference range was not used to interpret this result as normal/abnormal . RBC (test code = See_Comment [Automated 368-1) message] The system which generated this result transmit vincenzo reference range : 3.93 - 5.25 10*6/?L. The reference range was not used to interpret this result as normal/abnormal . HGB (test code = 11.6 g/dL 11.6-15.0 718-7) HCT (test code = 35.5 % 35.7-45.2 L 4544-3) MCV (test code = 83.9 fL 80.6-95.5 787-2) MCH (test code = 27.4 pg 25.9-32.8 785-6) MCHC (test code = 32.7 g/dL 31.6-35.1 786-4) RDW-SD (test code = 41.4 fL 39.0-49.9 98185-7) RDW-CV (test code = 13.5 % 12.0-15.5 788-0) PLT (test code = See_Comment [Automated 777-3) message] The system which generated this result transmit vincenzo reference range : 166 - 358 10*3/ ?L. The reference range was not u sed to interpret th is result as normal/abnormal . MPV (test code = 8.8 fL 9.5-12.9 L 57092-4) NRBC/100 WBC (test See_Comment [Automat ed code = 8891706215) message] The system which generated this result transmit vincenzo reference range : 0.0 - 10.0 /100 WBCs. The reference range was not used to interpret this result as normal/abnormal . NRBC x10^3 (test code <0.01 See_Comment [Auto mated = 5307691892) message] The system which generated this result transmit ivncenzo reference range : 10*3/?L. The reference range was not used to interpret this result as normal/abnormal . GRAN MAT (NEUT) % 80.1 % (test code = 770-8) IMM GRAN % (test code 1.30 % = 1831885797) LYMPH % (test code = 12.8 % 736-9) MONO % (test code = 5.6 % 5905-5) EOS % (test code = 0.0 % 713-8) BASO % (test code = 0.2 % 706-2) GRAN MAT x10^3(ANC) 12.03 10*3/uL 1.88-7.09 H (test code = 6783607962) IMM GRAN x10^3 (test 0.19 10*3/uL 0.00-0.06 H code = 7954385327) LYMPH x10^3 (test code 1.93 10*3/uL 1.32-3.29 = 731-0) MONO x10^3 (test code 0.84 10*3/uL 0.33-0.92 = 742-7) EOS x10^3 (test code = <0.03 0.03-0.39 L 711-2) BASO x10^3 (test code 0.03 10*3/uL 0.01-0.07 = 704-7) Lab Interpretation Abnormal (test code = 84179-0) [facility] GLUCOSE (AUTOMATED)2021-01-28 10:02:16 Test Item Value Reference Range Interpretation Comments POCT GLU (test code = 0191494944) 177 mg/dL 70-110 H Lab Interpretation (test code = Abnormal 83943-7) [facility] GLUCOSE (AUTOMATED)2021-01-28 04:15:40 Test Item Value Reference Range Interpretation Comments POCT GLU (test code = 6876498571) 215 mg/dL 70-110 H Lab Interpretation (test code = Abnormal 52884-6) [facility] GLUCOSE (AUTOMATED)2021-01-27 23:30:10 Test Item Value Reference Range Interpretation Comments POCT GLU (test code = 7258741110) 175 mg/dL 70-110 H Lab Interpretation (test code = Abnormal 67528-7) [facility]INE [facility] (LCMSMS) - MELISSA PANEL 2021-01-27 17:12:03 Test Item Value Reference Interpretation Comments Range Amphetamine-LCMS 32192 ng/mL <100 H (test code = 6506715016) Amphetamine-Creatini 70610 ng/mg ne Normalized (test code = 9364620803) Amphetamine-Interpre Positive Negative A tation (test code = 0084120408) METHAMPH-LCMS (test >73912 See_Comment H [Automa vincenzo code = 7574972979) message] The system which generated this result transmitted reference range : <100 ng/mL. The reference range was not used to interpret this result as normal/abnormal . METHAMPH-CREATININE Unable t o NORMALIZED (test calculate code = 3954013951) METHAMPH-INTERPREPRE Positive Negative A TATION (test code = 6807157993) BENZOYLE-INTERPRETAT Negative Negative ION (test code = 8552487468) PHENCYCLID-INTERPRET Negative Negative ATION (test code = 1993214735) CREAT U (test code = 72.1 mg/dL 8127393121) JOSE (test code = Test developed and JOSE) characteristics determined by [facility] Laboratory Services. Lab Interpretation Abnormal (test code = 02983-3) [facility] + LACTIC [id number] 17:02:53 Test Item Value Reference Range Interpretation Comments PH (test code = 2) 7.35-7.45 PCO2 (test code = See_Comment [Automat ed 5973828583) message] The sy stem which generated this result transmitted reference range : 35 - 45 mmHg. The reference range was not used to interpret this result as normal/abnormal . PO2 (test code = See_Comment [Automated 3856453522) message] The sy stem which generated this result transmitted reference range : 80 - 100 mmHg. The reference range was not used to interpret this result as normal/abnormal . HCO3 (test code = See_Comment [Automate d 6252934383) message] The sy stem which generated this result transmitted reference range : 22 - 26 mEq/L. The reference range was not used to interpret this result as normal/abnormal . BE (test code = See_Comment [Automated 9134165320) message] The sy stem which generated this result transmitted reference range : -3.0 - 3.0 mEq/ L. The reference r lexy was not used to interpret this result as normal/abnormal . THB (test code = 12.0 g/dL 12.0-16.0 3719791240) %O2HB (test code = 94.2 % 94.0-99.0 1257309272) %COHB ART (test code = 0.0 % 0.0-1.5 1988344477) %METHB ART (test code = 0.3 % 0.4-1.5 L 5100465324) VOL%O2 ART (test code = 16.0 % 15.0-23.0 6647997862) NA (test code = 140 mmol/L 135-145 0594543360) K+ (test code = 4.3 mmol/L 3.5-5.0 0193217127) AC CA IONZ (test code = 4.50 mg/dL 4.50-5.30 5504395193) GLUCOSE (test code = 255 mg/dL 70-110 H 1302967408) LACTIC ACID (test code 1.48 mmol/L 0.50-2.20 = 8340449530) Lab Interpretation Abnormal (test code = 58793-3) [facility]21-01-27 16:55:59 Test Item Value Reference Range Interpretation Comments POCT GLU (test code = 0098569896) 310 mg/dL 70-110 H Lab Interpretation (test code = Abnormal 85130-1) [facility] [id number] 16:48:04EXAM: XR CHEST 1 VW HISTORY: fu, aspiration pneumonia, on ventilator COMPARISON: None. FINDINGS: The tip of the endotracheal tube is 2 cm above the benjamin. The heart isslightly enlarged due to the left. The lungs are only moderately wellexpanded, but they are clear except for a triangular opacity behind theheart that probably represents partial atelectasis of the left lower lobe.. ? [facility], Radiant Results Inft User - 01/27/2021 11:49 AM CDT EXAM: XR CHEST 1 VWHISTORY: fu, aspiration pneumonia, on ventilator COMPARISON: None.FINDINGS:The tip of the endotracheal tube is 2 cm above the benjamin. The heart isslightly enlarged due to the left. The lungs are only moderately wellexpanded, but they are clear except for a triangular opacity behind theheart that probably represents partial atelectasis of the left lower lobe..[facility]IS[facility] 13:27:37 Test Item Value Reference Range Interpretation Comments APPEARANCE (test code = Cloudy Clear A 4458634853) COLOR (test code = Yellow Yellow 8549919376) PH (test code = 4.8-8.0 1948579279) SP GRAVITY (test code = 1.003-1.030 0994537972) GLU U QUAL (test code = Normal Normal 8300639654) BLOOD (test code = 3+ Negative A 7703318611) KETONES (test code = Negative Negative 7714800331) PROTEIN (test code = 30 mg/dL Negative A 2887-8) UROBILIN (test code = Normal Normal 7816221859) BILIRUBIN (test code = Negative Negative 1434458652) NITRITE (test code = Negative Negative 6772814592) LEUK JAN (test code = 25/uL Negative A 0809190057) RBC/HPF (test code = >182 See_Comment H [Autom ated message] 3487589311) The system [employer] generated this result transmitted ref erence range: 0 - 3 HP F. The reference range was not used to int erpret this result as normal/abnormal . WBC/HPF (test code = See_Comment H [Autom ated message] 6143174369) The system [employer] generated this result transmitted ref erence range: 0 - 5 HP F. The reference range was not used to int erpret this result as normal/abnormal . BACTERIA (test code = Few Negative A 0815659180) MUCOUS (test code = Slight Negative LPF A 5851584587) SQ EPITH (test code = See_Comment [Auto mated message] 6964859215) The system [employer] generated this result transmitted ref erence range: <=2 HPF. The reference range was not used to int erpret this result as normal/abnormal . HYAL CAST (test code = See_Comment H [Aut omated message] 2874334184) The system [employer] generated this result transmitted ref erence range: <=2 LPF. The reference range was not used to int erpret this result as normal/abnormal . OBIE EPITH (test code = See_Comment H [Aut omated message] 9456327004) The system [employer] generated this result transmitted ref erence range: <=1 HPF. The reference range was not used to int erpret this result as normal/abnormal . Lab Interpretation (test Abnormal code = 61265-0) [facility]SP[facility] [id number] 13:24:00 Test Item Value Reference Range Interpretation Comments SPUTUM CULTURE (test 1+ Yeast not Cryptococcus code = 622-1) species Gram stain (test Occasional (Rare) code = 664-3) Epithelial cells [facility]2021-01-27 11:20:16 Test Item Value Reference Range Interpretation Comments POCT GLU (test code = 1614996475) 230 mg/dL 70-110 H Lab Interpretation (test code = Abnormal 09733-8) [facility]OL[facility] PAN[facility] (NA, K, CL, CO2, GLUCOSE, BUN, CREATININE, CA)2021-01-27 10:00:57 Test Item Value Reference Range Interpretation Comments NA (test code = 141 mmol/L 135-145 4895534213) K (test code = 4.5 mmol/L 3.5-5.0 9424966840) CL (test code = 110 mmol/L 98-108 H 6749788931) CO2 TOTAL (test code = 26 mmol/L 23-31 9837447725) AGAP (test code = 2-16 7197559111) BUN (test code = 35 mg/dL 7-23 H 5237957835) GLUCOSE (test code = 225 mg/dL 70-110 H 9193406913) CREATININE (test code = 0.89 mg/dL 0.50-1.04 7797949048) CALCIUM (test code = 8.3 mg/dL 8.6-10.6 L 9015550612) eGFR (test code = mL/min/1.73m2 5535914329) JOSE (test code = JOSE) Association of Glomerular Filtration Rate (GFR) and Staging of Kidney Disease* + --+ --+ ------+| GFR (mL/min/1.73 m2) ?| With Kidney Damage ?| ?Without Kidney Damage+ --------+ --------+ +| ?>90 ?| ?Stage one ?| ? Normal ?+ ---+ ---+ -------+| ?60-89 ?| ?Stage two ?| ? Decreased GFR ? + --+ --+ ------+| ?30-59 ?| ?Stage three ?| ? Stage three ? + --+ --+ ------+| ?15-29 ?| ?Stage four ? | ? Stage four ?+ ---+ ---+ -------+| ?<15 (or dialysis) ? ?| ?Stage five ? | ? Stage five ?+ ---+ ---+ -------+ *Each stage assumes the associated GFR level has been in effect for at least three months. ?Stages 1 to 5, with or without kidney disease, indicate chronic kidney disease. Notes: Determination of stages one and two (with eGFR >59mL/min/1.73 m2) requires estimation of kidney damage for at least three months as defined by structural or functional abnormalities of the kidney, manifested by either:Pathological abnormalities or Markers of kidney damage (including abnormalities in the composition of the blood or urine or abnormalities in imaging tests). Lab Interpretation Abnormal (test code = 26327-9) [facility] 10:00:57 Test Item Value Reference Range Interpretation Comments MAGNESIUM (test code = 0300746679) 2.5 mg/dL 1.7-2.4 H Lab Interpretation (test code = Abnormal 39977-4) [facility].2021-01-27 09:51:52 Test Item Value Reference Range Interpretation Comments PH (test code = 2) 7.35-7.45 PCO2 (test code = See_Comment [Automat ed message] 6093409534) The system [employer] generated this result transmitted ref erence range: 35 - 45 mmHg. The reference r lexy was not used to interpret this result as normal/abnor mal. PO2 (test code = See_Comment L [Automated message] 8435803963) The system [employer] generated this result transmitted ref erence range: 80 - 100 mmHg. The reference r lexy was not used to interpret this result as normal/abnor mal. HCO3 (test code = See_Comment [Automate d message] 8078450139) The system [employer] generated this result transmitted ref erence range: 22 - 26 mEq/L. The reference r lexy was not used to interpret this result as normal/abnor mal. BE (test code = See_Comment [Automated message] 8705529774) The system [employer] generated this result transmitted ref erence range: -3.0 - 3 .0 mEq/L. The refe rence range was not u sed to interpret this result as normal/abnor mal. Lab Interpretation (test Abnormal code = 74996-7) [facility] WITH [id number] 09:42:39 Test Item Value Reference Range Interpretation Comments WBC (test code = See_Comment H [Automated 6690-2) message] The system which generated this result transmit vincenzo reference range : 4.30 - 11.10 10*3/?L. The reference range was not used to interpret this result as normal/abnormal . RBC (test code = See_Comment [Automated 789-8) message] The system which generated this result transmit vincenzo reference range : 3.93 - 5.25 10*6/?L. The reference range was not used to interpret this result as normal/abnormal . HGB (test code = 11.2 g/dL 11.6-15.0 L 718-7) HCT (test code = 34.4 % 35.7-45.2 L 4544-3) MCV (test code = 84.7 fL 80.6-95.5 787-2) MCH (test code = 27.6 pg 25.9-32.8 785-6) MCHC (test code = 32.6 g/dL 31.6-35.1 786-4) RDW-SD (test code = 41.9 fL 39.0-49.9 36577-1) RDW-CV (test code = 13.6 % 12.0-15.5 788-0) PLT (test code = See_Comment [Automated 777-3) message] The system which generated this result transmit vincenzo reference range : 166 - 358 10*3/ ?L. The reference range was not u sed to interpret th is result as normal/abnormal . MPV (test code = 9.1 fL 9.5-12.9 L 27801-6) NRBC/100 WBC (test See_Comment [Automat ed code = 0928809000) message] The system which generated this result transmit vincenzo reference range : 0.0 - 10.0 /100 WBCs. The reference range was not used to interpret this result as normal/abnormal . NRBC x10^3 (test code <0.01 See_Comment [Auto mated = 2487675361) message] The system which generated this result transmit vincenzo reference range : 10*3/?L. The reference range was not used to interpret this result as normal/abnormal . GRAN MAT (NEUT) % 88.0 % (test code = 770-8) IMM GRAN % (test code 0.50 % = 6970000395) LYMPH % (test code = 7.3 % 736-9) MONO % (test code = 4.1 % 5905-5) EOS % (test code = 0.0 % 713-8) BASO % (test code = 0.1 % 706-2) GRAN MAT x10^3(ANC) 11.45 10*3/uL 1.88-7.09 H (test code = 6332707294) IMM GRAN x10^3 (test 0.07 10*3/uL 0.00-0.06 H code = 3306659723) LYMPH x10^3 (test code 0.95 10*3/uL 1.32-3.29 L = 731-0) MONO x10^3 (test code 0.53 10*3/uL 0.33-0.92 = 742-7) EOS x10^3 (test code = <0.03 0.03-0.39 L 711-2) BASO x10^3 (test code <0.03 0.01-0.07 = 704-7) Lab Interpretation Abnormal (test code = 42172-1) [facility] GLUCOSE (AUTOMATED)2021-01-27 05:02:03 Test Item Value Reference Range Interpretation Comments POCT GLU (test code = 1320337821) 208 mg/dL 70-110 H Lab Interpretation (test code = Abnormal 36843-5) [facility] GLUCOSE (AUTOMATED)2021-01-26 23:25:49 Test Item Value Reference Range Interpretation Comments POCT GLU (test code = 2357754151) 237 mg/dL 70-110 H Lab Interpretation (test code = Abnormal 74861-8) [facility] COVID [id number] 22:24:40COVID DMT InterpretationInterpretation/Recommendations: Molecular NAAT Tests for Active Infection with the SARS-CoV-2 Virus: The patient has currently tested negative for the SARS-CoV-2 virus that causes COVID-19 illness. This most likely indicates that the patient does not have an active infection with the SARS-CoV-2 virus. However, infection is not completely ruled out as the false negative rate for molecular NAAT testing using a nasopharyngeal sample can be up to 30%, mostly dependent on the timing of sample collection in relation to illness onset and any deficiencies in sampling techniques. If the patient has symptoms concerning for COVID-19 illness, a repeat NAAT test (PCR, Rapid ID Now, etc.) should be performed, at which time the SARS-CoV-2 virus - if present - may have reached a detectable viral load (usually peaking by the end of the first week of symptoms). Tests for IgM and/or IgGAntibodies to the SARS-CoV-2 Virus: If the patient develops COVID-19 illness in the future, testingfor IgM and IgG antibodies approximately 3 weeks after illness onset will likely indicate if the patient has produced antibodies to the SARS-CoV-2 virus. However, some patients may take longer to develop detectable antibodies, while some patients who were infected with SARS-CoV-2 may never develop antibodies. While antibodies to SARS-CoV-2 may provide some degree of immunity, at this time the strength and duration of the antibody response is unknown. Interpretation Result Comments:These interpretation comments are based upon all COVID-19 testing the patient has had at [facility], including molecular NAAT testing (more commonly known as PCR testing and Rapid ID Now testing) and antibody testing. It does not take into account any testing that a patient has had outside of the [facility] medical record. [facility] LABORATORY SERVICESCOVID Resu [id number] NAAT (no units) ? ? Date ? Value ? 01/25/2021 ? Not Detected ? SARS-CoV-2 Rapid ID NOW (no units) ? ? Date ? Value ? 01/25/2021 ? Not Detected ? [facility] SERVICESHouston [facility] HospitalLAB ONLY COVID [id number] 22:24:39COVID DMT InterpretationInterpretation/Recommendations: Molecular NAAT Tests for Active Infection with the SARS-CoV-2 Virus: The patient has currently tested negative for the SARS-CoV-2 virus that causes COVID-19 illness. This most likely indicates that the patient does not have an active infection with the SARS-CoV-2 virus. However, infection is not completely ruled out as the false negative rate for molecular NAAT testing using a nasopharyngeal sample can be up to 30%, mostly dependent on the timing of sample collection in relation to illness onset and any deficiencies in sampling techniques. If the patient has symptoms concerning for COVID-19 illness, a repeat NAAT test (PCR, Rapid ID Now, etc.) should be performed, at which time the SARS-CoV-2 virus - if present - may have reached a detectable viral load (usually peaking by the end of the first week of symptoms). Tests for IgM and/or IgGAntibodies to the SARS-CoV-2 Virus: If the patient develops COVID-19 illness in the future, testingfor IgM and IgG antibodies approximately 3 weeks after illness onset will likely indicate if the patient has produced antibodies to the SARS-CoV-2 virus. However, some patients may take longer to develop detectable antibodies, while some patients who were infected with SARS-CoV-2 may never develop antibodies. While antibodies to SARS-CoV-2 may provide some degree of immunity, at this time the strength and duration of the antibody response is unknown. Interpretation Result Comments:These interpretation comments are based upon all COVID-19 testing the patient has had at [facility], including molecular NAAT testing (more commonly known as PCR testing and Rapid ID Now testing) and antibody testing. It does not take into account any testing that a patient has had outside of the [facility] medical record. [facility] LABORATORY SERVICESCOVID Resu [id number] NAAT (no units) ? ? Date ? Value ? 01/25/2021 ? Not Detected ? SARS-CoV-2 Rapid ID NOW (no units) ? ? Date ? Value ? 01/25/2021 ? Not Detected ? [facility]21-[facility]26 17:21:09 Test Item Value Reference Range Interpretation Comments POCT GLU (test code = 1670493238) 212 mg/dL 70-110 H Lab Interpretation (test code = Abnormal 28448-4) [facility]MR[facility] / MSSA Screen by PCR, [id number] 15:02:21 Test Item Value Reference Range Interpretation Comments MSSA Screen by PCRKeisha (test code Negative Negative = 52906-7) MRSA/MSSA Positive? (test code = No No 9060040812) Lab Interpretation (test code = Normal 81975-4) [facility] GLUCOSE (AUTOMATED)2021-01-26 10:55:20 Test Item Value Reference Range Interpretation Comments POCT GLU (test code = 6184569031) 201 mg/dL 70-110 H Lab Interpretation (test code = Abnormal 39834-7) [facility] HospitalTROPONIN [id number] 10:25:37 Test Item Value Reference Interpretation Comments Range TROPONIN I (test 0.055 ng/mL See_Comment H [Automated code = 7335309590) message] The system which generated this result transmitted reference range : <=0.034. The reference range was not used to interpret this result as normal/abnormal . JOSE (test code = Reference (Normal) JOSE) Range (defined by the 99th percentile reference limit): <= 0.034 ng/mL Note: Cardiac troponin begins to rise 3-4 hours after the onset of ischemia. Repeat in 4-6 hours if the sample was drawn within 3-4 hours of the onset of the symptom and found normal. Diagnosis of myocardial injury is made with acute changes in cTn concentrations with at least one serial sample above the 99th percentile upper reference limit (URL), taken together with the patient's clinical presentation. Biotin has been reported to cause a negative bias, interpret results relative to patient's use of biotin. Lab Interpretation Abnormal (test code = 61681-5) [facility] WITH [id number] 10:17:21 Test Item Value Reference Range Interpretation Comments WBC (test code = See_Comment H [Automated 6690-2) message] The system which generated this result transmit vincenzo reference range : 4.30 - 11.10 10*3/?L. The reference range was not used to interpret this result as normal/abnormal . RBC (test code = See_Comment [Automated 789-8) message] The system which generated this result transmit vincenzo reference range : 3.93 - 5.25 10*6/?L. The reference range was not used to interpret this result as normal/abnormal . HGB (test code = 11.9 g/dL 11.6-15.0 718-7) HCT (test code = 36.3 % 35.7-45.2 4544-3) MCV (test code = 83.8 fL 80.6-95.5 787-2) MCH (test code = 27.5 pg 25.9-32.8 785-6) MCHC (test code = 32.8 g/dL 31.6-35.1 786-4) RDW-SD (test code = 41.4 fL 39.0-49.9 97390-9) RDW-CV (test code = 13.5 % 12.0-15.5 788-0) PLT (test code = See_Comment [Automated 777-3) message] The system which generated this result transmit vincenzo reference range : 166 - 358 10*3/ ?L. The reference range was not u sed to interpret th is result as normal/abnormal . MPV (test code = 9.0 fL 9.5-12.9 L 39120-8) NRBC/100 WBC (test See_Comment [Automat ed code = 6812752390) message] The system which generated this result transmit vincenzo reference range : 0.0 - 10.0 /100 WBCs. The reference range was not used to interpret this result as normal/abnormal . NRBC x10^3 (test code <0.01 See_Comment [Auto mated = 7553342251) message] The system which generated this result transmit vincenzo reference range : 10*3/?L. The reference range was not used to interpret this result as normal/abnormal . GRAN MAT (NEUT) % 90.7 % (test code = 770-8) IMM GRAN % (test code 0.50 % = 1735261679) LYMPH % (test code = 5.7 % 736-9) MONO % (test code = 3.0 % 5905-5) EOS % (test code = 0.0 % 713-8) BASO % (test code = 0.1 % 706-2) GRAN MAT x10^3(ANC) 16.36 10*3/uL 1.88-7.09 H (test code = 4215799608) IMM GRAN x10^3 (test 0.09 10*3/uL 0.00-0.06 H code = 6911132853) LYMPH x10^3 (test code 1.02 10*3/uL 1.32-3.29 L = 731-0) MONO x10^3 (test code 0.54 10*3/uL 0.33-0.92 = 742-7) EOS x10^3 (test code = <0.03 0.03-0.39 L 711-2) BASO x10^3 (test code <0.03 0.01-0.07 = 704-7) Lab Interpretation Abnormal (test code = 05771-5) [facility] METABOLIC PANEL (NA, K, CL, CO2, GLUCOSE, BUN, CREATININE, CA)2021-01-26 10:14:38 Test Item Value Reference Range Interpretation Comments NA (test code = 139 mmol/L 135-145 1091009543) K (test code = 4.1 mmol/L 3.5-5.0 6974333185) CL (test code = 107 mmol/L 98-108 1512211319) CO2 TOTAL (test code = 28 mmol/L 23-31 0816699968) AGAP (test code = 2-16 7248489268) BUN (test code = 24 mg/dL 7-23 H 4363101862) GLUCOSE (test code = 200 mg/dL 70-110 H 2833113446) CREATININE (test code = 0.91 mg/dL 0.50-1.04 6597531566) CALCIUM (test code = 7.9 mg/dL 8.6-10.6 L 3484140556) eGFR (test code = mL/min/1.73m2 3739830586) JOSE (test code = JOSE) Association of Glomerular Filtration Rate (GFR) and Staging of Kidney Disease* + --+ --+ ------+| GFR (mL/min/1.73 m2) ?| With Kidney Damage ?| ?Without Kidney Damage+ --------+ --------+ +| ?>90 ?| ?Stage one ?| ? Normal ?+ ---+ ---+ -------+| ?60-89 ?| ?Stage two ?| ? Decreased GFR ? + --+ --+ ------+| ?30-59 ?| ?Stage three ?| ? Stage three ? + --+ --+ ------+| ?15-29 ?| ?Stage four ? | ? Stage four ?+ ---+ ---+ -------+| ?<15 (or dialysis) ? ?| ?Stage five ? | ? Stage five ?+ ---+ ---+ -------+ *Each stage assumes the associated GFR level has been in effect for at least three months. ?Stages 1 to 5, with or without kidney disease, indicate chronic kidney disease. Notes: Determination of stages one and two (with eGFR >59mL/min/1.73 m2) requires estimation of kidney damage for at least three months as defined by structural or functional abnormalities of the kidney, manifested by either:Pathological abnormalities or Markers of kidney damage (including abnormalities in the composition of the blood or urine or abnormalities in imaging tests). Lab Interpretation Abnormal (test code = 80134-5) [facility] GLUCOSE (AUTOMATED)2021-01-26 05:17:48 Test Item Value Reference Range Interpretation Comments POCT GLU (test code = 2866758281) 196 mg/dL 70-110 H Lab Interpretation (test code = Abnormal 74720-8) [facility] GLUCOSE (AUTOMATED)2021-01-26 01:08:37 Test Item Value Reference Range Interpretation Comments POCT GLU (test code = 9083555789) 208 mg/dL 70-110 H Lab Interpretation (test code = Abnormal 31892-9) [id number] Test Item Value Reference Interpretation Comments Range TROPONIN I (test 0.124 ng/mL See_Comment H [Automated code = 4413649948) message] The system which generated this result transmitted reference range : <=0.034. The reference range was not used to interpret this result as normal/abnormal . JOSE (test code = Reference (Normal) JOSE) Range (defined by the 99th percentile reference limit): <= 0.034 ng/mL Note: Cardiac troponin begins to rise 3-4 hours after the onset of ischemia. Repeat in 4-6 hours if the sample was drawn within 3-4 hours of the onset of the symptom and found normal. Diagnosis of myocardial injury is made with acute changes in cTn concentrations with at least one serial sample above the 99th percentile upper reference limit (URL), taken together with the patient's clinical presentation. Biotin has been reported to cause a negative bias, interpret results relative to patient's use of biotin. Lab Interpretation Abnormal (test code = 23472-3) [facility] [id number] 22:53:46 Test Item Value Reference Range Interpretation Comments SARS-CoV-2 NAAT (test Not Detected Not Detected code = 10592-0) JOSE (test code = JOSE) [employer] Aptima SARS-CoV-2 Assay is a nucleic acid amplification test intended for the qualitative detection of RNA from SARS-CoV-2 from nasopharyngeal (CUSTOMER QUALITY ENGINEER) specimens. ?It is used under Emergency Use Authorization (EUA) by FDA. A positive result is indicative of the presence of SARS-CoV-2 RNA. ?Clinical correlation with patient history and other diagnostic information is necessary to determine patient infection status. A negative (Not Detected) result does not preclude SARS-CoV-2 infection. ?Clinical correlation with patient history and other diagnostic information should be used in patient management decisions. Invalid: Unable to generate a valid test result on this specimen. ?Please submit a new specimen for repeat testing if clinically indicated. Lab Interpretation Normal (test code = 23969-0) [facility]21-[facility]-25 22:22:12 Test Item Value Reference Range Interpretation Comments POCT GLU (test code = 7009786315) 200 mg/dL 70-110 H Lab Interpretation (test code = Abnormal 31303-9) [facility] CHEST PULMONARY [id number] 20:36:[address] angiographic evidence of pulmonary emboli or aorticdissection. Multifocal pneumonia versus ARDS. 5939AFC 38891 CLINICAL INDICATIONS: ?Respiratory failure ORDERING PHYSICIAN: ABDELRAHMAN GARG TECHNIQUE: ?Axial computed tomographic angiogram images of the chest wereperformed after bolus administration of nonionic intravenous contrast. Multiplanar 3-D Maximum Intensity Projection images (MIP) reconstructionswere cr eated by the technologist in the coronal and sagittal planes as partof the CT angiography protocol.CT was performed utilizing the principles of ALARA (as low as reasonablyachievable). COMPARISON: ?None. FINDINGS: ? The pulmonary arterial tree is adequately opacified on this study. There are no filling defects within the pulmonary arterial tree. ET tubeand NG tube are adequately position. There is extensive multifocal alveolarairspace disease most severe at the lung bases where there are airbronchograms. There is groundglass infiltrates in the upper lung zones. Nopleural or pericardial effusions.Heart and aorta are normal in caliber.There is no adenopathy. Upper abdomen and osseous structures are grosslynormal. Chest wall is unremarkable. [facility], Radiant Results Inft User - 01/25/2021 3:37 PM CDT CLINICAL INDICATIONS: Respiratory failure ORDERING PHYSICIAN: ABDELRAHMAN LEENIQUE: Axial computed tomographic angiogram images ofthe chest wereperformed after bolus administration of nonionic intravenous contrast. Multiplanar 3-DMaximum Intensity Projection images (MIP) reconstructionswere created by the technologist in the coronal and sagittal planes as partof the CT angiography protocol. CT was performed utilizing the principles of ALARA (as low as reasonablyachievable).COMPARISON: None.FINDINGS: The pulmonary arterial funmi e is adequately opacified on this study. There are no filling defects within the pulmonary arterial tree. ET tubeand NG tube are adequately position. There is extensive multifocal alveolarairspace disease most severe at the lung bases where there are airbronchograms. There is groundglass infiltrates in the upper lung zones. Nopleural or pericardial effusions. Heart and aorta are normal in caliber.There is no adenopathy. Upper abdomen and osseous structures are grosslynormal. Chest wall is unremarkable.IMPRESSIONThere is no CT angiographic evidence of pulmonary emboli or aorticdissection.Multifocal pneumonia versus ARDS.RL 5939AFC 73085Acroqbudriloym signed by Augustus Glover MD at 01/25/2021 3:36 PMUnMethodist Hospital NortheastCT HEAD WO [id number] 18:53:25 No acute intracranial hemorrhage or large vascular territory infarct. Preliminary Report Dictated by Resident: Clarice Fong MD., have reviewed this study and agree with theabove report.CT HEAD WO CONTRAST HISTORY: Mental status change, unknown cause COMPARISON: None. TECHNIQUE: Contiguous axial imaging to the base of skull was obtained with2.5 mm slices without intravenous contrast. 5 mm axial, coronal, andsagittal reformats were obtained. FINDINGS: The ventricles and cerebral sulci are normal in caliber and configuration.No hydrocephalus, midline shift or pathological extra-axial fluidcollection is present. The basal cisterns are unremarkable. There is no acute intracranial hemorrhage or significant mass effect. Noparenchymal attenuation abnormality. The la-whitematter differentiationis preserved. Partial opacification of the maxillary sinuses and ethmoidal aircells withalmost complete opacification of the sphenoid sinuses. The mastoid aircells are clear. Thecalvarium and central skull base are unremarkable. [facility], Radiant Results Inft User - 01/25/2021 1:[address] HEAD WO CONTRASTHISTORY: Mental status change, unknown cause COMPARISON: None.TECHNIQUE: Contiguous axial imaging to the base of skull was obtained with2.5 mm slices without intravenous contrast. 5 mm axial, coronal, andsagittal reformats were obtained.FINDINGS:The ventricles and cerebral sulci are normal in caliber and configuration.No hydrocephalus, midline shift or pathological extra-axial fluidcollection is present. The basalcisterns are unremarkable.There is no acute intracranial hemorrhage or significant mass effect. Noparenchymal attenuation abnormality. The la-white matter differentiationis preserved.Partial opacification of the maxillary sinuses and ethmoidal air cells withalmost complete opacification of the sphenoid sinuses. The mastoid aircells are clear. The calvarium and central skull base are unremarkable.IMPRESSIONNo acute intracranial hemorrhage or large vascular territory infarct.Preliminary Report Dictated by Resident: Clarice Cabrera MD., have reviewed this study and agree with theabove report.[facility] [id number] 17:43:48 Test Item Value Reference Interpretation Comments Range TROPONIN I (test 0.307 ng/mL See_Comment H [Automated code = 5912182485) message] The system which generated this result transmitted reference range : <=0.034. The reference range was not used to interpret this result as normal/abnormal . JOSE (test code = Reference (Normal) JOSE) Range (defined by the 99th percentile reference limit): <= 0.034 ng/mL Note: Cardiac troponin begins to rise 3-4 hours after the onset of ischemia. Repeat in 4-6 hours if the sample was drawn within 3-4 hours of the onset of the symptom and found normal. Diagnosis of myocardial injury is made with acute changes in cTn concentrations with at least one serial sample above the 99th percentile upper reference limit (URL), taken together with the patient's clinical presentation. Biotin has been reported to cause a negative bias, interpret results relative to patient's use of biotin. Lab Interpretation Abnormal (test code = 32402-7) [facility] 17:32:18 Test Item Value Reference Range Interpretation Comments POCT GLU (test code = 7766421773) 194 mg/dL 70-110 H Lab Interpretation (test code = Abnormal 75393-1) [facility] (IMMUNOASSAY) - COMPREHENSIVE DRUG [id number] 14:21:06 Test Item Value Reference Range Interpretation Comments AMPHET (test code = Presumptive Positive Negative A 8001900872) NILES U (test code = Negative Negative 7358354824) BENZO U (test code = Negative Negative 7068817728) Cocaine Metabolite (test Negative Negative code = 5861180006) METHADONE (test code = Negative Negative 1291239331) OPIATES (test code = Negative Negative 3644582163) PCP (test code = Negative Negative 0980457447) THC (test code = Negative Negative 8254058798) JOSE (test code = JOSE) Urine Drug Cutoff Ranges Cocaine: ? 150 ng/mLBenzodiazepines: ? ? 200 ng/mLMethadone: ? 300 ng/mLAmphetamine: ? 1,000 ng/mLOpiates: ? 300 ng/mLCannabinoids: ?50 ng/mLPhencyclidine: ? ? ? 25 ng/mLBarbiturates: ?200 ng/mL The results are to be used only for medical (i.e., treatment) purposes. Unconfirmed screening results must not be used for non-medical purposes (e.g., employment testing, legal testing). Lab Interpretation (test Abnormal code = 50706-2) [facility] [id number] 13:29:15 Test Item Value Reference Interpretation Comments Range TROPONIN I (test 0.243 ng/mL See_Comment H [Automated code = 2602492868) message] The system which generated this result transmitted reference range : <=0.034. The reference range was not used to interpret this result as normal/abnormal . JOSE (test code = Reference (Normal) JOSE) Range (defined by the 99th percentile reference limit): <= 0.034 ng/mL Note: Cardiac troponin begins to rise 3-4 hours after the onset of ischemia. Repeat in 4-6 hours if the sample was drawn within 3-4 hours of the onset of the symptom and found normal. Diagnosis of myocardial injury is made with acute changes in cTn concentrations with at least one serial sample above the 99th percentile upper reference limit (URL), taken together with the patient's clinical presentation. Biotin has been reported to cause a negative bias, interpret results relative to patient's use of biotin. Lab Interpretation Abnormal (test code = 53463-5) [facility]. METABOLIC PANEL (73277)2021-01-25 13:18:37 Test Item Value Reference Range Interpretation Comments NA (test code = 139 mmol/L 135-145 1445417820) K (test code = 4.1 mmol/L 3.5-5.0 3839713771) CL (test code = 105 mmol/L 98-108 9552133119) CO2 TOTAL (test code = 26 mmol/L 23-31 4183870062) AGAP (test code = 2-16 7199988905) BUN (test code = 17 mg/dL 7-23 0377069984) GLUCOSE (test code = 239 mg/dL 70-110 H 3105881412) CREATININE (test code = 0.92 mg/dL 0.50-1.04 3903589929) TOTAL BILI (test code = 0.4 mg/dL 0.1-1.1 8085916035) CALCIUM (test code = 8.1 mg/dL 8.6-10.6 L 2007834751) T PROTEIN (test code = 7.2 g/dL 6.3-8.2 9387752933) ALBUMIN (test code = 4.0 g/dL 3.5-5.0 6740888834) ALK PHOS (test code = 88 U/L 34-122 4739076679) ALTv (test code = 36 U/L 5-35 H 1742-6) AST(SGOT) (test code = 62 U/L 13-40 H 2144669010) eGFR (test code = mL/min/1.73m2 1761289544) JOSE (test code = JOSE) Association of Glomerular Filtration Rate (GFR) and Staging of Kidney Disease* + --+ --+ ------+| GFR (mL/min/1.73 m2) ?| With Kidney Damage ?| ?Without Kidney Damage+ --------+ --------+ +| ?>90 ?| ?Stage one ?| ? Normal ?+ ---+ ---+ -------+| ?60-89 ?| ?Stage two ?| ? Decreased GFR ? + --+ --+ ------+| ?30-59 ?| ?Stage three ?| ? Stage three ? + --+ --+ ------+| ?15-29 ?| ?Stage four ? | ? Stage four ?+ ---+ ---+ -------+| ?<15 (or dialysis) ? ?| ?Stage five ? | ? Stage five ?+ ---+ ---+ -------+ *Each stage assumes the associated GFR level has been in effect for at least three months. ?Stages 1 to 5, with or without kidney disease, indicate chronic kidney disease. Notes: Determination of stages one and two (with eGFR >59mL/min/1.73 m2) requires estimation of kidney damage for at least three months as defined by structural or functional abnormalities of the kidney, manifested by either:Pathological abnormalities or Markers of kidney damage (including abnormalities in the composition of the blood or urine or abnormalities in imaging tests). Lab Interpretation Abnormal (test code = 05675-7) [facility]2021-06-27 13:18:37 Test Item Value Reference Range Interpretation Comments MAGNESIUM (test code = 5341662042) 2.2 mg/dL 1.7-2.4 Lab Interpretation (test code = Normal 64591-4) [facility] HospitalGLYCOSYLATED HEMOGLOBIN (A1C)2021-01-25 13:14:46 Test Item Value Reference Range Interpretation Comments HGB A1C (test code = 6.0 % 4.0-5.7 H 4548-4) JOSE (test code = JOSE) Reference RangesNormal: <5.7%Prediabetes: 5.7 - 6.4%Diabetes: > 6.5% Lab Interpretation (test Abnormal code = 18521-2) [facility].2021-01-25 13:05:18 Test Item Value Reference Range Interpretation Comments PH (test code = 2) 7.35-7.45 L PCO2 (test code = See_Comment [Automat ed message] 7490419201) The system [employer] generated this result transmitted ref erence range: 35 - 45 mmHg. The reference r lexy was not used to interpret this result as normal/abnor mal. PO2 (test code = See_Comment H [Automated message] 5566187191) The system [employer] generated this result transmitted ref erence range: 80 - 100 mmHg. The reference r lexy was not used to interpret this result as normal/abnor mal. HCO3 (test code = See_Comment [Automate d message] 9035365783) The system [employer] generated this result transmitted ref erence range: 22 - 26 mEq/L. The reference r lexy was not used to interpret this result as normal/abnor mal. BE (test code = See_Comment L [Automated message] 8682950454) The system [employer] generated this result transmitted ref erence range: -3.0 - 3 .0 mEq/L. The refe rence range was not u sed to interpret this result as normal/abnor mal. Lab Interpretation (test Abnormal code = 54484-6) [facility] HospitalCBC WITHOUT [id number] 12:57:53 Test Item Value Reference Range Interpretation Comments WBC (test code = 6690-2) See_Comment H [A utomated message] The system [facility] generated this result transmit vincenzo reference range : 4.30 - 11.10 10*3/?L. The reference range was not used to interpret this result as normal/abnormal . RBC (test code = 789-8) See_Comment [Au tomated message] The system [facility] generated this result transmit vincenzo reference range : 3.93 - 5.25 10* 6/?L. The reference r lexy was not used to interpret this result as normal/abnormal . HGB (test code = 718-7) 13.9 g/dL 11.6-15.0 HCT (test code = 4544-3) 41.5 % 35.7-45.2 MCH (test code = 785-6) 27.5 pg 25.9-32.8 MCV (test code = 787-2) 82.0 fL 80.6-95.5 MCHC (test code = 786-4) 33.5 g/dL 31.6-35.1 PLT (test code = 777-3) See_Comment [Au tomated message] The system [facility] generated this result transmit vincenzo reference range : 166 - 358 10*3/?L. The reference range was not used to interpret this result as normal/abnormal . MPV (test code = 8.6 fL 9.5-12.9 L 34641-4) RDW-CV (test code = 13.5 % 12.0-15.5 788-0) RDW-SD (test code = 39.8 fL 39.0-49.9 22376-8) NRBC x10^3 (test code = <0.01 See_Comment [Au tomated message] 1997934084) The system [facility] generated this result transmit vincenzo reference range : 10*3/?L. The reference range was not used to interpret this result as normal/abnormal . NRBC/100 WBC (test code See_Comment [Au tomated message] = 9032688293) The system [facility] generated this result transmit vincenzo reference range : 0.0 - 10.0 /100 WBC s. The reference r lexy was not used to interpret this result as normal/abnormal . IPF % (test code = 6649866880) Lab Interpretation (test Abnormal code = 75992-7) [facility] + LACTIC [id number] 09:12:23 Test Item Value Reference Range Interpretation Comments PH (test code = 2) 7.35-7.45 L PCO2 (test code = See_Comment H [Automat ed 3646098877) message] The sy stem which generated this result transmitted reference range : 35 - 45 mmHg. The reference range was not used to interpret this result as normal/abnormal . PO2 (test code = See_Comment H [Automated 9871353222) message] The sy stem which generated this result transmitted reference range : 80 - 100 mmHg. The reference range was not used to interpret this result as normal/abnormal . HCO3 (test code = See_Comment [Automate d 7396272754) message] The sy stem which generated this result transmitted reference range : 22 - 26 mEq/L. The reference range was not used to interpret this result as normal/abnormal . BE (test code = See_Comment L [Automated 7401551076) message] The sy stem which generated this result transmitted reference range : -3.0 - 3.0 mEq/ L. The reference r lexy was not used to interpret this result as normal/abnormal . THB (test code = 16.0 g/dL 12.0-16.0 9988975394) %O2HB (test code = 98.7 % 94.0-99.0 8496742678) %COHB ART (test code = 1.0 % 0.0-1.5 9083679486) %METHB ART (test code = 0.0 % 0.4-1.5 L 8706386469) VOL%O2 ART (test code = 22.8 % 15.0-23.0 0637253142) NA (test code = 140 mmol/L 135-145 3711485194) K+ (test code = 3.8 mmol/L 3.5-5.0 8176892313) AC CA IONZ (test code = 4.50 mg/dL 4.50-5.30 5291541572) GLUCOSE (test code = 262 mg/dL 70-110 H 3053007924) LACTIC ACID (test code 2.10 mmol/L 0.50-2.20 = 6517558773) Lab Interpretation Abnormal (test code = 56134-6) [facility] 08:06:00Kadeem Corona MD ? ? 01/25/2021 ?4:55 AMIntubationPerformed by: Kadeem Corona MDAuthorized by: Kadeem Corona MD Consent: ?Consent obtained: ?Emergent situationPre- procedure details: ?Patient status: ?Unresponsive ?Mallampati score: ?II ?Pretreatment medications: ?None ?Paralytics: ?SuccinylcholineProcedure details: ?Preoxygenation: ?Bag valve mask ?CPR in progress: no ? ?Intubation method: ?Oral ?Oral intubation technique: ?Lighted stylet ?Tube size (mm): ?6.0 ?Tube type: ?Cuffed ?Number of attempts: ?2 ?Ventilation between attempts: no ? ?Cricoid pressure: no ? ?Tube visualized through cords: yes ?Placement assessment: ?ETT to lip: ?22 ?Tube secured with: ?Adhesive tape and ETT ivy ?Breath sounds: ?Equal ?Placement verification: condensation, CXR verification, direct visualization, equal breath sounds, ETCO2 detector, fiberoptic scope and tube exhalation ? ?CXR findings: ?ETTin proper placePost-procedure details: ?Patient tolerance of procedure: ?Tolerated well, no immediate complications [facility]2021-06-27 08:06:00Kadeem Corona MD ? ? 01/25/2021 ?4:55 AMCritical CarePerformed by: Kadeem Corona MDAuthorizedby: Kadeem Corona MD Critical care provider statement: ?Critical care start time: ?01/25/2021 1:00 AM ?Critical care end time: ?01/25/2021 2:14 AM ?Critical care time was exclusive of: ?Separately billable procedures and treating other patients and teaching time ?Critical care was necessary to treat or prevent imminent or life-threatening deterioration of the following conditions: ?Cardiac failure, respiratory failure and shock ?Critical care was time spent personally by me on the following activities: ?Blood draw for specimens, discussions with consultants, evaluation of patient's response to treatment, examination of patient, gastric intubation, interpretation of cardiac output measurements,obtaining history from patient or surrogate, ordering and performing treatments and interventions, ordering and review of laboratory studies, ordering and review of radiographic studies, pulse oximetry, re- evaluation of patient's condition, review of old charts and ventilator management ?I assumed direction of critical care for this patient from another provider in my specialty: no ?[facility]PO[facility] [id number] 07:56:00 Test Item Value Reference Range Interpretation Comments POCT PREG (test code = 1605) begative On board controls acceptable with present C Line (test code = 3574) POCT PREG LOT # (test code = 3575) [id number] POCT PREG TEST DATE (test 06/30/2022 code = 3576) Lab Interpretation (test code = Normal 01708-4) [facility]ID TEST[facility])2021-01-25 07:28:34 Test Item Value Reference Range Interpretation Comments SARS-CoV-2 Rapid ID NOW Not Detected Not Detected (test code = 38305-8) JOSE (test code = JOSE) ID NOW COVID-19 Assay is an isothermal nucleic acid amplification test intended for the qualitative detection of nucleic acid from SARS-CoV-2 viral RNA in nasopharyngeal (CUSTOMER QUALITY ENGINEER) specimens. It is used under Emergency Use Authorization (EUA) by FDA. The limit of detection (LOD) of the assay is 125 Genome Equivalents/mL. A positive result is indicative of the presence of SARS-CoV-2 RNA. ?Clinical correlation with patient history and other diagnostic information is necessary to determine patient infection status. A negative (Not Detected) result does not preclude SARS-CoV-2 infection. In patients with clinical symptoms and other tests that are consistent with SARS-CoV-2 infection, negative results should be treated as presumptive negative and a new specimen should be tested with alternative PCR molecular test. Invalid: Please collect a new specimen for repeat patient testing if clinically indicated. Lab Interpretation Normal (test code = 23568-5) [facility] [id number] 07:11:18 Test Item Value Reference Interpretation Comments Range TROPONIN I (test 0.006 ng/mL See_Comment [Automated code = 6407742171) message] The system which generated this result transmitted reference range : <=0.034. The reference range was not used to interpret this result as normal/abnormal . JOSE (test code = Reference (Normal) JOSE) Range (defined by the 99th percentile reference limit): <= 0.034 ng/mL Note: Cardiac troponin begins to rise 3-4 hours after the onset of ischemia. Repeat in 4-6 hours if the sample was drawn within 3-4 hours of the onset of the symptom and found normal. Diagnosis of myocardial injury is made with acute changes in cTn concentrations with at least one serial sample above the 99th percentile upper reference limit (URL), taken together with the patient's clinical presentation. Biotin has been reported to cause a negative bias, interpret results relative to patient's use of biotin. Lab Interpretation Normal (test code = 90865-1) [facility] [id number] 07:08:18 Test Item Value Reference Range Interpretation Comments NT-proBNP (test code 41 pg/mL See_Comment [Autom ated = [id number]) message] The system which generated this result transmitted reference range : <=125. The reference range was not used to interpret this result as normal/abnormal . JOSE (test code = JOSE) Biotin has been reported to cause a negative bias, interpret results relative to patient's use of biotin. Lab Interpretation Normal (test code = 51393-8) [facility] / [id number] 07:04:37 Test Item Value Reference Range Interpretation Comments PROTIME PATIENT (test See_Comment [Auto mated message] code = 5964-2) The system wh ich generated this result transmitted ref erence range: 12.0 - 1 4.7 Seconds. The re ference range was not u sed to interpret this result as normal/abnor mal. INR (test code = 6301-6) Nor mal INR <1.1; Warfarin Therap eutic range 2.0 to 3. 0 or 2.5 to 3.5, dep ending upon the indica tions. Lab Interpretation (test Normal code = 04586-2) [facility]CBC WITH [id number] 07:00:00 Test Item Value Reference Range Interpretation Comments WBC (test code = See_Comment H [Automated 1009-2) message] The system which generated this result transmit vincenzo reference range : 4.30 - 11.10 10*3/?L. The reference range was not used to interpret this result as normal/abnormal . RBC (test code = See_Comment [Automated 789-8) message] The system which generated this result transmit vincenzo reference range : 3.93 - 5.25 10*6/?L. The reference range was not used to interpret this result as normal/abnormal . HGB (test code = 14.1 g/dL 11.6-15.0 718-7) HCT (test code = 44.3 % 35.7-45.2 4544-3) MCV (test code = 85.9 fL 80.6-95.5 787-2) MCH (test code = 27.3 pg 25.9-32.8 785-6) MCHC (test code = 31.8 g/dL 31.6-35.1 786-4) RDW-SD (test code = 40.9 fL 39.0-49.9 03519-0) RDW-CV (test code = 13.2 % 12.0-15.5 788-0) PLT (test code = See_Comment H [Automated 777-3) message] The system which generated this result transmit vincenzo reference range : 166 - 358 10*3/ ?L. The reference range was not u sed to interpret th is result as normal/abnormal . MPV (test code = 9.0 fL 9.5-12.9 L 13120-3) NRBC/100 WBC (test See_Comment [Automat ed code = 3960678431) message] The system which generated this result transmit vincenzo reference range : 0.0 - 10.0 /100 WBCs. The reference range was not used to interpret this result as normal/abnormal . NRBC x10^3 (test code <0.01 See_Comment [Auto mated = [id number]) message] The system which generated this result transmit vincenzo reference range : 10*3/?L. The reference range was not used to interpret this result as normal/abnormal . GRAN MAT (NEUT) % 36.7 % (test code = 770-8) IMM GRAN % (test code 1.30 % = 7845937595) LYMPH % (test code = 53.1 % 736-9) MONO % (test code = 6.1 % 5905-5) EOS % (test code = 1.6 % 713-8) BASO % (test code = 1.2 % 706-2) GRAN MAT x10^3(ANC) 7.96 10*3/uL 1.88-7.09 H (test code = 1982215179) IMM GRAN x10^3 (test 0.29 10*3/uL 0.00-0.06 H code = 2103956152) LYMPH x10^3 (test code 11.52 10*3/uL 1.32-3.29 H = 731-0) MONO x10^3 (test code 1.33 10*3/uL 0.33-0.92 H = 742-7) EOS x10^3 (test code = 0.34 10*3/uL 0.03-0.39 711-2) BASO x10^3 (test code 0.27 10*3/uL 0.01-0.07 H = 704-7) Lab Interpretation Abnormal (test code = 29625-3) [facility] (81338[facility]2021-01-25 07:00:00 Test Item Value Reference Range Interpretation Comments NA (test code = 137 mmol/L 135-145 0257659671) K (test code = 3.9 mmol/L 3.5-5.0 4831287480) CL (test code = 99 mmol/L 98-108 0894148027) CO2 TOTAL (test code = 20 mmol/L 23-31 L 3326164820) AGAP (test code = 2-16 H 6953133194) BUN (test code = 13 mg/dL 7-23 2638952323) GLUCOSE (test code = 306 mg/dL 70-110 H 0242734345) CREATININE (test code = 1.05 mg/dL 0.50-1.04 H 5267740916) TOTAL BILI (test code = 0.5 mg/dL 0.1-1.7 0499871405) CALCIUM (test code = 8.9 mg/dL 8.6-10.6 9993384165) T PROTEIN (test code = 7.8 g/dL 6.3-8.2 3533736759) ALBUMIN (test code = 4.8 g/dL 3.5-5.0 8419534502) ALK PHOS (test code = 88 U/L 34-122 9445980665) ALTv (test code = 26 U/L 5-35 1742-6) AST(SGOT) (test code = 36 U/L 13-40 8173159868) eGFR (test code = mL/min/1.73m2 5878859161) JOSE (test code = JOSE) Association of Glomerular Filtration Rate (GFR) and Staging of Kidney Disease* + --+ --+ ------+| GFR (mL/min/1.73 m2) ?| With Kidney Damage ?| ?Without Kidney Damage+ --------+ --------+ +| ?>90 ?| ?Stage one ?| ? Normal ?+ ---+ ---+ -------+| ?60-89 ?| ?Stage two ?| ? Decreased GFR ? + --+ --+ ------+| ?30-59 ?| ?Stage three ?| ? Stage three ? + --+ --+ ------+| ?15-29 ?| ?Stage four ? | ? Stage four ?+ ---+ ---+ -------+| ?<15 (or dialysis) ? ?| ?Stage five ? | ? Stage five ?+ ---+ ---+ -------+ *Each stage assumes the associated GFR level has been in effect for at least three months. ?Stages 1 to 5, with or without kidney disease, indicate chronic kidney disease. Notes: Determination of stages one and two (with eGFR >59mL/min/1.73 m2) requires estimation of kidney damage for at least three months as defined by structural or functional abnormalities of the kidney, manifested by either:Pathological abnormalities or Markers of kidney damage (including abnormalities in the composition of the blood or urine or abnormalities in imaging tests). Lab Interpretation Abnormal (test code = 17905-4) [facility] - To confirm nasogastric tube placement.2021-01-25 06:56:42Feeding tube tip overlies the gastric antrum. RL: 5611 AF: 02047 END OF REPORT Ordering Physician: KADEEM CORONA Clinical Indication: og tu be S/SX, Dx: ?To confirm nasogastric tube tubeplacement. Additional Clinical Information: Technical Quality: Good Comparison: None Technique: Single view abdomen Findings: Tip of the feeding tube overlies the gastric antrum. There is nobowel distention. [facility], Radiant Results Inft User - 01/25/2021 1:57 AM CDT Ordering Physician: KADEEM Bernalical Indication: og tube S/SX, Dx: To confirm nasogastric tube tubeplacement.Additional Clinical Information:Technical Quality: GoodComparison: NoneTechnique: Single view abdomenFindings: Tip of the feeding tube overlies the gastric antrum. There is nobowel distention.IMPRESSIONFeeding tube tip overlies the gastric antrum.RL: 5611AFC: [id number] OF REPORT [facility] HospitalXR CHEST 1 [id number] 06:55:21Bilateral upper lobe and right lower lobe moderate infiltrate.2. Gas-distended stomach.3. Tip of theET tube is in the midline, 5 cm above the benjamin. RL: 5611 END OF REPORT Ordering Physician: KADEEM CORONA Clinical Indication: S/P Intubation for acute respiratory distress Additional Clinical Information: Technical Quality: Good Comparison: None Technique: Portable chest obtained at 0154 hours Findings: Tip of the ET tube is 5 cm above the benjamin. There is agas-distended stomach. There are moderate bilateral upper lobe and alsomoderateright lower lobe infiltrates. The heart size is normal. [facility], Radiant Results Inft User - 01/25/2021 1:56 AM CDT Ordering Physician: KADEEM Bernalical Indication: S/P Intubation for acute respiratory distress Additional Clinical Information:Technical Quality: GoodComparison: NoneTechnique: Portable chest obtained at 0154 hoursFindings: Tip of the ET tube is 5 cm above the benjamin. There is agas-distended stomach. There are moderate bilateral upper lobe and alsomoderate right lower lobe infiltrates. The heart size is normal.IMPRESSIONBilateral upper lobe and right lower lobe moderate infiltrate.2. Gas-distended stomach.3. Tip of the ET tube is in the midline, 5 cm above the benjamin.RL: 5611END OF REPORT [facility]2021-01-25 05:55:18 Test Item Value Reference Range Interpretation Comments POCT GLU (test code = 0837485152) 272 mg/dL 70-110 H Lab Interpretation (test code = Abnormal 46462-4) [facility]"
--- NOTE | 2022-01-11 16:28 | ER ---
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 I just decided to stop talking. I don't need any help. Coronavirus screen: Vaccine status: Patient reports receiving the 2nd dose of the covid vaccine. Client denies travel out of the [place] in the last 14 days. At this time, the client does not indicate any symptoms associated with coronavirus-19. Ebola Screen: Patient denies travel to an Ebola-affected area in the 21 days before illness onset. Initial Sepsis Screen: Does the patient meet any 2 criteria? No. Patient's initial sepsis screen is negative. Does the patient have a suspected source of infection? No. Patient's initial sepsis screen is negative. Risk Assessment: Do you want to hurt yourself or someone else? Patient reports no desire to harm self or others. Onset of symptoms was January 11, 2022. 16:13 Method Of Arrival: EMS ll1 16:13 Acuity: BRUCE 5 ll1 Triage Assessment: 16:20 General: Appears in no apparent distress. Behavior is calm, cooperative, appropriate ll1 for age. Pain: Denies pain. Neuro: No deficits noted. 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 - Social history:: Smoking status: Patient reports the use of cigarette tobacco products, smokes one-half pack cigarettes per day. Screenin:20 Abuse screen: Denies threats or abuse. Nutritional screening: No deficits noted. ll1 Tuberculosis screening: No symptoms or risk factors identified. 16:30 Fall Risk Total Simms Fall Scale indicates No Risk (0-24 pts). ll1 Assessment: 16:30 Reassessment: No changes from previously documented assessment. Patient and/or family ll1 updated on plan of care and expected duration. Pain level reassessed. Patient is alert, oriented x 3, equal unlabored respirations, skin warm/dry/pink. Vital Signs: 16:13 BP 154 / 91; Pulse 94; Resp 16; Temp 98.5; Pulse Ox 100% ; Pain 0/10; ll1 ED Course: 16:11 Patient arrived in ED. ss 16:13 Esteban Quinones PA is PHCP. cp 16:13 Gabino Hein MD is Attending Physician. cp 16:13 Freeman Lam, ELIZABETH is Primary Nurse. ll1 16:13 Arm band placed on Patient placed in an exam room, on a stretcher. ll1 16:18 Triage completed. ll1 16:20 Patient has correct armband on for positive identification. Bed in low position. Call ll1 light in reach. 16:30 No provider procedures requiring assistance completed. Patient did not have IV access ll1 during this emergency room visit. Administered Medications: No medications were administered Medication: 16:20 VIS not applicable for this client. ll1 Outcome: 16:28 Discharge ordered by MD. cp 16:30 Discharged to home ambulatory. ll1 16:30 Condition: stable 16:30 Discharge instructions given to patient, Instructed on discharge instructions, follow up and referral plans. 16:31 Patient left the ED. 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 I just decided to stop talking. I don't need any help. ll1
--- NOTE | 2022-01-11 16:28 | EDPHYS ---
Physician Documentation [facility] Name: Laney Griffith Age: 36 yrs Sex: Female : 1985 Arrival Date: 01/11/2022 Time: 16:11 Bed 13 Private MD: ED Physician Gabino Hein HPI: 01/11 16:20 This 36 yrs old Female presents to ER via EMS with complaints of Altered Mental Status. cp 16:20 Patient is a 36-year-old female brought in by EMS with complaints of altered mental cp status. Patient reportedly was found on the ground in [facility] and not responsive. EMS reports patient would not open her eyes so they used an ammonia capsule in which patient did respond. Patient was observed to be holding her breath when second pneumonia was used. Initially patient would not speak or respond to questioning but eyes would open spontaneously. Upon further interview with the nurse patient reports that she was scared of the police so she pretended to be unresponsive. Patient requesting to be discharged. 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 - Social history:: Smoking status: Patient reports the use of cigarette tobacco products, smokes one-half pack cigarettes per day. ROS: 16:22 Constitutional: Negative for fever. cp 16:22 Cardiovascular: Negative for chest pain. 16:22 Respiratory: Negative for cough, shortness of breath, wheezing. 16:22 Abdomen/GI: Negative for abdominal pain, vomiting, diarrhea, constipation. 16:22 Neuro: Negative for altered mental status, headache, loss of consciousness, syncope, weakness. 16:22 All other systems are negative. Exam: 16:23 Head/Face: Normocephalic, atraumatic. cp 16:23 Constitutional: The patient appears in no acute distress, alert, awake, comfortable, non-diaphoretic, non-toxic, well developed, well nourished. 16:23 Eyes: Periorbital structures: appear normal, Pupils: equal, round, and reactive to light and accomodation, Extraocular movements: intact throughout, Sclera: no appreciated abnormality, Lids and lashes: appear normal, bilaterally. 16:23 ENT: External ear(s): are unremarkable, Nose: is normal, Mouth: Lips: moist, Oral mucosa: moist, Posterior pharynx: Airway: no evidence of obstruction, patent. 16:23 Chest/axilla: Inspection: normal, Palpation: is normal, no crepitus, no tenderness. 16:23 Cardiovascular: Rate: normal, Rhythm: regular. 16:23 Respiratory: the patient does not display signs of respiratory distress, Respirations: normal, no use of accessory muscles, no retractions, labored breathing, is not present, Breath sounds: are clear throughout, no decreased breath sounds, no stridor, no wheezing. 16:23 Abdomen/GI: Inspection: abdomen appears normal, Palpation: abdomen is soft and non-tender, in all quadrants. 16:23 Back: pain, is absent, ROM is normal. 16:23 Neuro: Orientation: to person, place \T\ time. Mentation: is normal, Motor: moves all fours, strength is normal, Sensation: is normal. Vital Signs: 16:13 BP 154 / 91; Pulse 94; Resp 16; Temp 98.5; Pulse Ox 100% ; Pain 0/10; ll1 MDM: 16:14 Patient medically screened. cp 16:15 Differential Diagnosis altered mental status, illegal drug use, malingering, cp electrolyte abnormality, trauma. 16:28 Data reviewed: vital signs, nurses notes. cp 16:28 Counseling: I had a detailed discussion with the patient and/or guardian regarding: the cp historical points, exam findings, and any diagnostic results supporting the discharge/admit diagnosis, to return to the emergency department if symptoms worsen or persist or if there are any questions or concerns that arise at home. ED course: VSS. Patient alert times 3 and reports no complaints at this time. Patient requesting discharge to home. 01/11 16:14 Order name: EKG - Nurse/Tech 01/11 16:14 Order name: IV Saline Lock 01/11 16:14 Order name: Labs collected and sent 01/11 16:14 Order name: Suicide Screening ([place]) 01/11 16:14 Order name: Urine Dipstick-Ancillary (obtain specimen) 01/11 16:14 Order name: Urine Test (obtain specimen) cp Administered Medications: No medications were administered Disposition: 19:07 Co-signature as Attending Physician, Gabino Hein MD. rn Disposition Summary: 01/11/22 16:28 Discharge Ordered Location: Home cp Problem: new cp Symptoms: are resolved cp Condition: Stable cp Diagnosis - Encounter for screening, unspecified cp Followup: cp - With: Emergency Department - When: As needed - Reason: Worsening of condition Discharge Instructions: - Discharge Summary Sheet cp - Medical Screening Exam cp Forms: - Medication Reconciliation Form cp - Thank You Letter cp - Antibiotic Education cp - Prescription Opioid Use cp Signatures: Dispatcher [employer] EDGabino Chandra MD MD rn Esteban Quinones PA PA cp Lewis, Lynsay, RN RN ll1
[2022-01-11 17:05] VITALS: BP 154/91; TEMP 98.5; O2SAT 100
== END 2022-01-11 16:31 | disposition home or self-care (01) ==
LOC: ER 16:08
DX: R41.82 Altered mental status, unspecified (principal); Z13.9 Encounter for screening, unspecified
CPT/HCPCS: 99283